=== PATIENT | male | born 1960 | race Caucasian/White ===

== ENCOUNTER 2023-05-12 16:36 | Inpatient (IN) ==
[2023-05-12] MEDS ORDERED: SODIUM CHLORIDE 0.9% 500 ML IV STA (16:46)
[2023-05-12] MEDS ORDERED: ONDANSETRON INJ 2 MG/ML 2 ML VIAL IV STA (16:57)
[2023-05-12] MEDS ORDERED: MoRPHine SULFATE 4 MG/ML 1 ML CARP\\VIAL IV STA ×2 (16:57→20:02)
--- NOTE | 2023-05-12 16:59 | Emergency Department Note ---
Impression & Plan Atypical chest pain ADMIT ED Provider Note HPI: The patient is a 62-year-old gentleman with history of Waldenstrom macroglobulinemia, who presents the emergency department today with complaint of chills and a presyncopal type sensation. Patient states that this began several hours prior to arrival to the ED. Patient states that he felt "very cold" when he was sitting in his truck. 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 Patient states that he began to feel continuingly unwell, symptoms are very nonspecific but he does mention that he believes he had some chest discomfort at the time as well. Patient states he continued to have chills and felt somewhat lightheaded and therefore came to the ED to be assessed. On arrival here to the ED the patient is moderately tachycardic, blood pressure is borderline in the 90s systolic. Patient denies any current chest pain or shortness of breath but states he feels off his baseline. Patient states that time he is getting pain in his upper back and to the left side of his chest. Patient is afebrile on arrival. ROS: - Per HPI Differential Diagnosis: COVID-19 infection, influenza A infection, viral upper respiratory infection, sepsis, pneumonia, urinary tract infection, acute coronary syndrome, pulmonary embolism, critical electrolyte abnormalities, amongst other potential pathologies. *Outpatient medications and allergy history reviewed. *Pertinent external medical records reviewed. PE: General: Alert HEENT: Normocephalic, trachea midline Eyes: Extraocular eye movement is intact, no scleral erythema Pulmonary: Clear to auscultation bilaterally, no wheezing Cardio: Tachycardic rate with regular rhythm GI: Abdomen is soft to palpation : No suprapubic tenderness MSK: No evidence of trauma or malformation of the extremities, no edema Skin: No evidence of rash Neuro: Alert, no focal deficits Psychiatric: Cooperative technology solutions architect: (As interpreted by myself): - An order was placed for continuous cardiac monitoring - Patient was noted to be in sinus tachycardia with a rate of 117 EKG: (As interpreted by myself): Rate: 114 Rhythm: Sinus tachycardia Intervals: Within normal limits ST changes: No ST elevation Time: 1643 EKG #2: (As interpreted by myself): Rate: 114 Rhythm: Sinus tachycardia Intervals: Within normal limits ST changes: No ST elevation Time: 1920 Interventions provided in ED: -IV fluid bolus, IV vancomycin, IV cefepime, IV morphine Medical Decision Making: Shortly after the patient arrived IV was established lab work ordered, patient was maintained on wireless construction manager, patient was given IV fluid bolus for tachycardia and mild hypotension. Lab work shows a leukocytosis of 14.2, hemoglobin is slightly reduced at 12.3, platelet count is normal at 243, D-dimer was obtained and is markedly elevated at 9660, CMP shows mild hyponatremia but otherwise no critical findings, procalcitonin is nonspecific at 0.38, troponin is negative x1. EKG shows evidence of sinus tachycardia without any acute ischemic changes. Given D-dimer elevation, CT angiography of the chest was obtained that does not show any evidence of pulmonary embolism. On my reassessment following IV fluids patient states that he has some left-sided chest discomfort now. Repeat EKG was obtained and again does not show any acute ischemic changes. Delta troponin was also obtained and remains negative. Patient continues to state that he has myalgias and generally does not feel well, his blood pressure is improved to greater than 100 systolic on my reassessment. Blood cultures were drawn here in the ED, his urinalysis does not show any evidence of infection, Lyme testing is negative, chest x-ray does not show any pneumonia. Given the patient's history of Waldenstrom macroglobulinemia with ongoing symptoms concerning for sepsis in addition to ongoing tachycardia in the low 100s, I do have concern for sepsis of unknown origin at this point. His lactic acid is noted to be within normal limits. Patient was started on broad-spectrum vancomycin and cefepime, I d iscussed the patient's presentation with the on-call hospitalist for [facility], Dr. Blanco, and the patient was excepted for admission in stable condition for further care. Consultants: Hospitalist, Dr. Blanco Disposition discussion held by myself with: Patient and at bedside * CRITICAL CARE TIME: ( 45 ) minutes -Stabilization of hypotension and tachycardia requiring greater than 30 cc/kg of IV fluid resuscitation for stabilization of blood pressure and improvement in t achycardia, time spent at the bedside, interpretation of diagnostic studies including EKG, discussion with other physicians and arrangement of admission Diagnosis: 1. Sepsis of unknown origin 2. Hypotension, fluid responsive 3. Leukocytosis, acute 4. Chest pain, acute, nonspecific 5. Elevated D-dimer Disposition: Admission Saul Pearson DO Emergency Medicine Past Med/Surg History Social History Smoking Status: Never smoker Feels Safe at Home: Yes Home Meds Home Medications Medication Instructions Recorded Confirmed clotrimazole-betamethasone 1 1 applic topical BID PRN other 05/12/23 05/12/23 %-0.05 % topical cream hydrocortisone 2.5 % topical cream 1 applic topical BID PRN flare up 05/12/23 05/12/23 ibuprofen 800 mg tablet (IBU) 800 mg PO Q8H PRN Pain 05/12/23 05/12/23 ketoconazole 2 % topical cream See Rx Instructions .Route .COMPLEX 05/12/23 05/12/23 metformin 500 mg tablet 500 mg PO BID 05/12/23 05/12/23 rosuvastatin 5 mg tablet 5 mg PO DAILY 05/12/23 05/12/23 tizanidine 4 mg tablet 4 mg PO Q6H PRN Muscle Spasm 05/12/23 05/12/23 trazodone 50 mg tablet 50 mg PO HS 05/12/23 05/12/23 valacyclovir 1 gram tablet See Rx Instructions .Route 05/12/23 05/12/23 (Valtrex) .COMPLEX PRN Cold Sores zolpidem 12.5 mg tablet,extended 12.5 mg PO HS PRN Sleep 05/12/23 05/12/23 release,multiphase (Ambien CR) Results & Data (ED) Vital Signs Vital Signs - 24 hr 05/12/23 16:46 05/12/23 16:28 05/12/23 16:28 Temperature 36.5 C Temperature Source Oral Pulse Rate 117 H 116 H Pulse Rate [Right Finger] Pulse Rate from SpO2 Sensor Pulse Rhythm [Right Finger] Pulse Strength [Right Finger] Respiratory Rate 19 Respiratory Effort / Characteristics Non-Labored Spontaneous Respiratory Depth Normal Respiratory Pattern Regular Blood Pressure 96/79 L Blood Pressure [Right Arm] Blood Pressure Mean 84 Blood Pressure Mean [Right Arm] Blood Pressure Position [Right Arm] Pulse Oximetry 96 96 Oxygen Delivery Method Room Air Room Air Oxygen Flow Rate 0 Sepsis Recent Fever Within 48 Hours No Sepsis New/Unexplained Change in Mental Status N/A Sepsis Action Taken by Nursing Physician Notified 05/12/23 16:47 05/12/23 18:00 05/12/23 16:44 Temperature Temperature Source Pulse Rate Pulse Rate [Right Finger] 110 H Pulse Rate from SpO2 Sensor Pulse Rhythm [Right Finger] Regular Pulse Strength [Right Finger] Normal Respiratory Rate 18 Respiratory Effort / Characteristics Non-Labored Respiratory Depth Normal Respiratory Pattern Regular Blood Pressure 96/79 L Blood Pressure [Right Arm] 104/73 Blood Pressure Mean 89 Blood Pressure Mean [Right Arm] 83 Blood Pressure Position [Right Arm] Lying Pulse Oximetry 96 97 Oxygen Delivery Method Room Air Room Air Oxygen Flow Rate Sepsis Recent Fever Within 48 Hours Sepsis New/Unexplained Change in Mental Status Sepsis Action Taken by Nursing 05/12/23 16:44 05/12/23 16:50 05/12/23 16:53 Temperature Temperature Source Pulse Rate 117 H 119 H 118 H Pulse Rate [Right Finger] Pulse Rate from SpO2 Sensor 112 H 118 H 118 H Pulse Rhythm [Right Finger] Pulse Strength [Right Finger] Respiratory Rate 24 26 H 27 H Respiratory Effort / Characteristics Respiratory Depth Respiratory Pattern Blood Pressure Blood Pressure [Right Arm] Blood Pressure Mean Blood Pressure Mean [Right Arm] Blood Pressure Position [Right Arm] Pulse Oximetry 97 97 96 Oxygen Delivery Method Oxygen Flow Rate Sepsis Recent Fever Within 48 Hours Sepsis New/Unexplained Change in Mental Status Sepsis Action Taken by Nursing 05/12/23 16:53 05/12/23 17:00 05/12/23 17:00 Temperature Temperature Source Pulse Rate 115 H Pulse Rate [Right Finger] Pulse Rate from SpO2 Sensor 115 H Pulse Rhythm [Right Finger] Pulse Strength [Right Finger] Respiratory Rate 24 Respiratory Effort / Characteristics Respiratory Depth Respiratory Pattern Blood Pressure 109/76 134/84 Blood Pressure [Right Arm] Blood Pressure Mean 85 103 Blood Pressure Mean [Right Arm] Blood Pressure Position [Right Arm] Pulse Oximetry 96 Oxygen Delivery Method Oxygen Flow Rate Sepsis Recent Fever Within 48 Hours Sepsis New/Unexplained Change in Mental Status Sepsis Action Taken by Nursing 05/12/23 17:10 05/12/23 17:41 05/12/23 17:41 Temperature Temperature Source Pulse Rate 117 H 117 H Pulse Rate [Right Finger] Pulse Rate from SpO2 Sensor 117 H 116 H Pulse Rhythm [Right Finger] Pulse Strength [Right Finger] Respiratory Rate 28 H 19 Respiratory Effort / Characteristics Respiratory Depth Respiratory Pattern Blood Pressure 112/80 Blood Pressure [Right Arm] Blood Pressure Mean 90 Blood Pressure Mean [Right Arm] Blood Pressure Position [Right Arm] Pulse Oximetry 95 95 Oxygen Delivery Method Oxygen Flow Rate Sepsis Recent Fever Within 48 Hours Sepsis New/Unexplained Change in Mental Status Sepsis Action Taken by Nursing 05/12/23 17:50 05/12/23 18:00 05/12/23 18:00 Temperature Temperature Source Pulse Rate 112 H 112 H Pulse Rate [Right Finger] Pulse Rate from SpO2 Sensor 111 H 111 H Pulse Rhythm [Right Finger] Pulse Strength [Right Finger] Respiratory Rate 22 19 Respiratory Effort / Characteristics Respiratory Depth Respiratory Pattern Blood Pressure 97/70 L Blood Pressure [Right Arm] Blood Pressure Mean 81 Blood Pressure Mean [Right Arm] Blood Pressure Position [Right Arm] Pulse Oximetry 95 94 Oxygen Delivery Method Oxygen Flow Rate Sepsis Recent Fever Within 48 Hours Sepsis New/Unexplained Change in Mental Status Sepsis Action Taken by Nursing 05/12/23 18:10 05/12/23 18:12 05/12/23 18:12 Temperature Temperature Source Pulse Rate 110 H 111 H Pulse Rate [Right Finger] Pulse Rate from SpO2 Sensor 110 H 111 H Pulse Rhythm [Right Finger] Pulse Strength [Right Finger] Respiratory Rate 13 30 H Respiratory Effort / Characteristics Respiratory Depth Respiratory Pattern Blood Pressure 116/65 Blood Pressure [Right Arm] Blood Pressure Mean 69 Blood Pressure Mean [Right Arm] Blood Pressure Position [Right Arm] Pulse Oximetry 95 96 Oxygen Delivery Method Oxygen Flow Rate Sepsis Recent Fever Within 48 Hours Sepsis New/Unexplained Change in Mental Status Sepsis Action Taken by Nursing 05/12/23 18:27 05/12/23 18:27 05/12/23 18:30 Temperature Temperature Source Pulse Rate 110 H Pulse Rate [Right Finger] Pulse Rate from SpO2 Sensor Pulse Rhythm [Right Finger] Pulse Strength [Right Finger] Respiratory Rate 12 Respiratory Effort / Characteristics Respiratory Depth Respiratory Pattern Blood Pressure 104/73 98/71 L Blood Pressure [Right Arm] Blood Pressure Mean 83 83 Blood Pressure Mean [Right Arm] Blood Pressure Position [Right Arm] Pulse Oximetry Oxygen Delivery Method Oxygen Flow Rate Sepsis Recent Fever Within 48 Hours Sepsis New/Unexplained Change in Mental Status Sepsis Action Taken by Nursing 05/12/23 18:30 05/12/23 18:40 05/12/23 20:00 Temperature Temperature Source Pulse Rate 111 H 111 H Pulse Rate [Right Finger] 109 H Pulse Rate from SpO2 Sensor 111 H 111 H Pulse Rhythm [Right Finger] Regular Pulse Strength [Right Finger] Normal Respiratory Rate 21 20 18 Respiratory Effort / Characteristics Non-Labored Spontaneous Respiratory Depth Normal Respiratory Pattern Regular Blood Pressure Blood Pressure [Right Arm] 123/85 Blood Pressure Mean Blood Pressure Mean [Right Arm] 97 Blood Pressure Position [Right Arm] Semi-fowlers Pulse Oximetry 96 97 95 Oxygen Delivery Method Room Air Room Air Oxygen Flow Rate Sepsis Recent Fever Within 48 Hours Sepsis New/Unexplained Change in Mental Status Sepsis Action Taken by Nursing Laboratory Data 05/12/23 16:59 05/12/23 16:59 Lab Results 05/12/23 05/12/23 05/12/23 Range/Units 16:59 16:59 16:59 WBC 14.22 H (4.8-10.8) K/ul RBC 4.04 L (4.70-6.10) M/uL Hgb 12.3 L (14.0-18.0) g/dl Hct 36.6 L (42.0-52.0) % MCV 90.6 (80.0-100.0) fL MCH 30.4 (25.0-34.0) pg MCHC 33.6 (32.0-36.0) g/dL RDW Std Deviation 44.4 (36.4-46.3) fL RDW Coeff of Dg 13.5 (11.5-14.5) % Plt Count 243 (130-400) K/uL MPV 9.3 L (9.4-12.4) fL Immature Gran % (Auto) 0.3 % Neut % (Auto) 92.9 % Lymph % (Auto) 4.4 % [place] % (Auto) 1.6 % Eos % (Auto) 0.7 % Baso % (Auto) 0.1 % Neut # (Auto) 13.21 H (1.40-6.50) K/uL Lymph # (Auto) 0.62 L (1.2-3.4) K/uL [place] # (Auto) 0.23 (0.11-0.59) K/uL Eos # (Auto) 0.10 (0-0.50) K/uL Baso # (Auto) 0.02 (0-0.2) K/uL Immature Gran # (Auto) 0.04 (0.01-0.20) K/uL PT 10.8 (9.0-12.0) Seconds INR 1.0 (0.9-1.1) D-Dimer 9660 H* (0-500) ug/L FEU Sodium 135 L (136-145) mmol/L Potassium 4.0 (3.5-5.1) mmol/L Chloride 103 (98-107) mmol/L Carbon Dioxide 22 (21-32) mmol/L Anion Gap 10 (3-11) BUN 15 (6-23) mg/dl Creatinine 0.96 (0.6-1.4) mg/dl Est Cr Clr Drug Dosing 86.3 ml/min Est GFR ( Amer) 99.2 ml/min Est GFR (Non-Af Amer) 85.6 ml/min BUN/Creatinine Ratio 15.6 (10-20) Glucose 128 H (70-99(Fasting)) mg/dl Lactate (0.4-2.0) mmol/L Calcium 9.4 (8.6-10.3) mg/dl Total Bilirubin 0.7 (0.2-1.0) mg/dl AST 14 (13-39) U/L ALT 11 (7-52) U/L Alkaline Phosphatase 42 (34-104) U/L Troponin I High Sens 6.6 (0-20) pg/ml Total Protein 8.9 H (6.0-8.3) gm/dl Albumin 3.7 (3.4-5.0) gm/dl Globulin 5.2 H (2.5-4.0) gm/dl Albumin/Globulin Ratio 0.7 L (0.9-2) Lipase 26 (11-82) U/L Procalcitonin (0-0.5) ng/ml Urine Color Urine Appearance (Clear) Urine pH (4.5-7.5) Ur Specific [place] (1.000-1.030) Urine Protein (Negative) Urine Glucose (UA) (Negative) Urine Ketones (Negative) Urine Blood (Negative) Urine Nitrite (Negative) Urine Bilirubin (Negative) Urine Urobilinogen (Negative) Ur Leukocyte Esterase (Negative) Adenovirus (PCR) (NotDetected) B. pertussis DNA (PCR) (NotDetected) B.parapertussis DNA PCR (NotDetected) Lyme Disease IgG Ab (Negative) Lyme Disease IgM Ab (Negative) C. pneumoniae DNA (PCR) (NotDetected) Coronavirus OC43 (PCR) (NotDetected) Coronavirus HKU1 (PCR) (NotDetected) Coronavirus 229E (PCR) (NotDetected) SARS-CoV-2 (PCR) (NotDetected) Coronavirus NL63 (PCR) (NotDetected) Human Metapneumovir PCR (NotDetected) Influenza Type A (PCR) (NotDetected) Influenza Type B (PCR) (NotDetected) M. pneumoniae (PCR) (NotDetected) Parainfluenza 1 (PCR) (NotDetected) Parainfluenza 2 (PCR) (NotDetected) Parainfluenza 3 (PCR) (NotDetected) Parainfluenza 4 (PCR) (NotDetected) RSV (PCR) (NotDetected) Entero/Rhino (PCR) (NotDetected) 05/12/23 05/12/23 05/12/23 Range/Units 16:59 16:59 16:59 WBC (4.8-10.8) K/ul RBC (4.70-6.10) M/uL Hgb (14.0-18.0) g/dl Hct (42.0-52.0) % MCV (80.0-100.0) fL MCH (25.0-34.0) pg MCHC (32.0-36.0) g/dL RDW Std Deviation (36.4-46.3) fL RDW Coeff of Dg (11.5-14.5) % Plt Count (130-400) K/uL MPV (9.4-12.4) fL Immature Gran % (Auto) % Neut % (Auto) % Lymph % (Auto) % [place] % (Auto) % Eos % (Auto) % Baso % (Auto) % Neut # (Auto) (1.40-6.50) K/uL Lymph # (Auto) (1.2-3.4) K/uL [place] # (Auto) (0.11-0.59) K/uL Eos # (Auto) (0-0.50) K/uL Baso # (Auto) (0-0.2) K/uL Immature Gran # (Auto) (0.01-0.20) K/uL PT (9.0-12.0) Seconds INR (0.9-1.1) D-Dimer (0-500) ug/L FEU Sodium (136-145) mmol/L Potassium (3.5-5.1) mmol/L Chloride (98-107) mmol/L Carbon Dioxide (21-32) mmol/L Anion Gap (3-11) BUN (6-23) mg/dl Creatinine (0.6-1.4) mg/dl Est Cr Clr Drug Dosing ml/min Est GFR ( Amer) ml/min Est GFR (Non-Af Amer) ml/min BUN/Creatinine Ratio (10-20) Glucose (70-99(Fasting)) mg/dl Lactate (0.4-2.0) mmol/L Calcium (8.6-10.3) mg/dl Total Bilirubin (0.2-1.0) mg/dl AST (13-39) U/L ALT (7-52) U/L Alkaline Phosphatase (34-104) U/L Troponin I High Sens (0-20) pg/ml Total Protein (6.0-8.3) gm/dl Albumin (3.4-5.0) gm/dl Globulin (2.5-4.0) gm/dl Albumin/Globulin Ratio (0.9-2) Lipase (11-82) U/L Procalcitonin 0.38 (0-0.5) ng/ml Urine Color Urine Appearance (Clear) Urine pH (4.5-7.5) Ur Specific [place] (1.000-1.030) Urine Protein (Negative) Urine Glucose (UA) (Negative) Urine Ketones (Negative) Urine Blood (Negative) Urine Nitrite (Negative) Urine Bilirubin (Negative) Urine Urobilinogen (Negative) Ur Leukocyte Esterase (Negative) Adenovirus (PCR) Not Detected (NotDetected) B. pertussis DNA (PCR) Not Detected (NotDetected) B.parapertussis DNA PCR Not Detected (NotDetected) Lyme Disease IgG Ab Negative (Negative) Lyme Disease IgM Ab Negative (Negative) C. pneumoniae DNA (PCR) Not Detected (NotDetected) Coronavirus OC43 (PCR) Not Detected (NotDetected) Coronavirus HKU1 (PCR) Not Detected (NotDetected) Coronavirus 229E (PCR) Not Detected (NotDetected) SARS-CoV-2 (PCR) Not Detected (NotDetected) Coronavirus NL63 (PCR) Not Detected (NotDetected) Human Metapneumovir PCR Not Detected (NotDetected) Influenza Type A (PCR) Not Detected (NotDetected) Influenza Type B (PCR) Not Detected (NotDetected) M. pneumoniae (PCR) Not Detected (NotDetected) Parainfluenza 1 (PCR) Not Detected (NotDetected) Parainfluenza 2 (PCR) Not Detected (NotDetected) Parainfluenza 3 (PCR) Not Detected (NotDetected) Parainfluenza 4 (PCR) Not Detected (NotDetected) RSV (PCR) Not Detected (NotDetected) Entero/Rhino (PCR) Not Detected (NotDetected) 05/12/23 05/12/23 05/12/23 Range/Units 19:03 19:03 Unknown WBC (4.8-10.8) K/ul RBC (4.70-6.10) M/uL Hgb (14.0-18.0) g/dl Hct (42.0-52.0) % MCV (80.0-100.0) fL MCH (25.0-34.0) pg MCHC (32.0-36.0) g/dL RDW Std Deviation (36.4-46.3) fL RDW Coeff of Dg (11.5-14.5) % Plt Count (130-400) K/uL MPV (9.4-12.4) fL Immature Gran % (Auto) % Neut % (Auto) % Lymph % (Auto) % [place] % (Auto) % Eos % (Auto) % Baso % (Auto) % Neut # (Auto) (1.40-6.50) K/uL Lymph # (Auto) (1.2-3.4) K/uL [place] # (Auto) (0.11-0.59) K/uL Eos # (Auto) (0-0.50) K/uL Baso # (Auto) (0-0.2) K/uL Immature Gran # (Auto) (0.01-0.20) K/uL PT (9.0-12.0) Seconds INR (0.9-1.1) D-Dimer (0-500) ug/L FEU Sodium (136-145) mmol/L Potassium (3.5-5.1) mmol/L Chloride (98-107) mmol/L Carbon Dioxide (21-32) mmol/L Anion Gap (3-11) BUN (6-23) mg/dl Creatinine (0.6-1.4) mg/dl Est Cr Clr Drug Dosing ml/min Est GFR ( Amer) ml/min Est GFR (Non-Af Amer) ml/min BUN/Creatinine Ratio (10-20) Glucose (70-99(Fasting)) mg/dl Lactate 1.1 (0.4-2.0) mmol/L Calcium (8.6-10.3) mg/dl Total Bilirubin (0.2-1.0) mg/dl AST (13-39) U/L ALT (7-52) U/L Alkaline Phosphatase (34-104) U/L Troponin I High Sens 4.9 (0-20) pg/ml Total Protein (6.0-8.3) gm/dl Albumin (3.4-5.0) gm/dl Globulin (2.5-4.0) gm/dl Albumin/Globulin Ratio (0.9-2) Lipase (11-82) U/L Procalcitonin (0-0.5) ng/ml Urine Color Yellow Urine Appearance Clear (Clear) Urine pH 5.5 (4.5-7.5) Ur Specific [place] 1.019 (1.000-1.030) Urine Protein Negative (Negative) Urine Glucose (UA) Negative (Negative) Urine Ketones Negative (Negative) Urine Blood Negative (Negative) Urine Nitrite Negative (Negative) Urine Bilirubin Negative (Negative) Urine Urobilinogen Negative (Negative) Ur Leukocyte Esterase Negative (Negative) Adenovirus (PCR) (NotDetected) B. pertussis DNA (PCR) (NotDetected) B.parapertussis DNA PCR (NotDetected) Lyme Disease IgG Ab (Negative) Lyme Disease IgM Ab (Negative) C. pneumoniae DNA (PCR) (NotDetected) Coronavirus OC43 (PCR) (NotDetected) Coronavirus HKU1 (PCR) (NotDetected) Coronavirus 229E (PCR) (NotDetected) SARS-CoV-2 (PCR) (NotDetected) Coronavirus NL63 (PCR) (NotDetected) Human Metapneumovir PCR (NotDetected) Influenza Type A (PCR) (NotDetected) Influenza Type B (PCR) (NotDetected) M. pneumoniae (PCR) (NotDetected) Parainfluenza 1 (PCR) (NotDetected) Parainfluenza 2 (PCR) (NotDetected) Parainfluenza 3 (PCR) (NotDetected) Parainfluenza 4 (PCR) (NotDetected) RSV (PCR) (NotDetected) Entero/Rhino (PCR) (NotDetected) Administered Medications Discontinued Medications Sodium Chloride (Nss) 500 mls @ 999 mls/hr IV .Q31M STA Stop: 05/12/23 17:16 Last Infusion: 05/12/23 17:44 Dose: 0 mls/hr Documented By: Admin: 05/12/23 17:10 Dose: 999 mls/hr Documented By: CHARMAINE Sodium Chloride (Nss 1000ml) 1,000 mls @ 999 mls/hr IV .Q1H1M ONE Stop: 05/12/23 18:13 Last Infusion: 05/12/23 18:49 Dose: 0 mls/hr Documented By: Admin: 05/12/23 17:44 Dose: 999 mls/hr Documented By: CHARMAINE Sodium Chloride (Nss 1000ml) 1,000 mls @ 999 mls/hr IV .Q1H1M ONE Stop: 05/12/23 19:58 Last Admin: 05/12/23 19:27 Dose: 999 mls/hr Documented By: DANYELL Cefepime HCl (Maxipime) 2,000 mg in 20 mls @ 5 mls/min IV NOW STA; Protocol Stop: 05/12/23 20:12 Last Admin: 05/12/23 20:16 Dose: 5 mls/min Documented By: MYKE Ioversol (Ioversol 350 Mg 125ml Prefilled Syringe) 117 ml IV ONCE ONE Stop: 05/12/23 18:23 Last Admin: 05/12/23 18:22 Dose: 117 ml Documented By: GARCIA Morphine Sulfate (Morphine Sulfate 4 Mg/Ml 1 Ml Carp\\Vial) 4 mg IV NOW STA Stop: 05/12/23 16:58 Last Admin: 05/12/23 17:11 Dose: 4 mg Documented By: CHARMAINE Morphine Sulfate (Morphine Sulfate 4 Mg/Ml 1 Ml Carp\\Vial) 4 mg IV NOW STA Stop: 05/12/23 20:03 Last Admin: 05/12/23 20:10 Dose: 4 mg Documented By: MYKE Ondansetron HCl (Ondansetron Inj 2 Mg/Ml 2 Ml Vial) 4 mg IV NOW STA Stop: 05/12/23 16:58 Last Admin: 05/12/23 17:11 Dose: 4 mg Documented By: CHARMAINE Imaging Data Radiologist's Impression: Chest X-Ray 05/12/23 16:47 XR chest 1V not portable HISTORY: Chest pain, nonspecific COMPARISON: None. FINDINGS: No pneumothorax. No pleural effusions. The cardiac silhouette is normal in size. No focal lung consolidations to suggest pneumonia. No evidence for pulmonary edema. Degenerative changes within the shoulders. IMPRESSION: No acute process. ACT 112: Negative or not required by law. Electronically signed by: Jerod Carver M.D. 05/12/2023 5:44 PM Hip X-Ray 05/12/23 16:56 XR hip LT min 2V CLINICAL HISTORY: acute on chronic left groin pain COMPARISON STUDY: None. FINDINGS: No acute fracture or dislocation within the left hip. The visualized pelvic bones are intact. Mild cartilage space narrowing within the superior aspect of the left hip consistent with degenerative change. No evidence for a vascular necrosis of the femoral head. Mild vascular calcifications are noted. No radiopaque foreign bodies. IMPRESSION: Mild osteoarthritis within the left hip. No acute fractures. ACT 112: Negative or not required by law. Electronically signed by: Jerod Carver M.D. 05/12/2023 5:42 PM Chest CTA 05/12/23 18:10 CHEST CTA for PULMONARY ARTERIES CT DOSE: 842.39 mGy.cm HISTORY: Shortness of breath. Elevated d-dimer. Chest pain. TECHNIQUE: Multiaxial CT images of the chest were performed following the intravenous administration of contrast to evaluate the pulmonary arteries. 3D/Maximal intensity projection images were also obtained. Sagittal and coronal reformations were also reviewed. A dose lowering technique was utilized adhering to the principles of ALARA. COMPARISON STUDY: None. FINDINGS: There is a normal caliber thoracic aorta with no evidence for dissection. The heart is normal in size. No pleural or pericardial effusions. Mild respiratory motion artifact results in suboptimal evaluation of the lower lobe segmental/subsegmental pulmonary arteries. However, no filling defects within the pulmonary arteries to suggest a pulmonary embolus. Limited views of the upper abdomen demonstrate a normal spleen and adrenal glands. There is a 9 mm hypodense lesion within the central aspect of the liver. This is technically too small to characterize but statistically represents a cyst. Normal esophagus. The thyroid gland enhances normally. There is a small hiatus hernia. No mediastinal or hilar lymphadenopathy. No acute fractures identified. The central airways are patent. No pneumothorax. Mild dependent changes seen at the lung bases. Otherwise, no focal lung consolidations to suggest a pneumonia. No evidence for pulmonary edema. IMPRESSION: No evidence for a pulmonary embolus. ACT 112: Negative or not required by law. Electronically signed by: Jerod Carver M.D. 05/12/2023 6:41 PM Discharge Plan Visit Data Chief Complaint: Cardiac Assessment Stated Complaint: CHEST TIGHTNESS, ANXIOUS ED Provider: Saul Pearson Discharge Problem: Atypical chest pain Forms Stand Alone Forms: [facility] Prescriptions Prescriptions: No Action metformin 500 mg tablet 500 mg PO BID trazodone 50 mg tablet 50 mg PO HS ibuprofen [IBU] 800 mg tablet 800 mg PO Q8H PRN (Reason: Pain) tizanidine 4 mg tablet 4 mg PO Q6H PRN (Reason: Muscle Spasm) valacyclovir [Valtrex] 1 gram tablet See Rx Instructions .ROUTE .COMPLEX PRN (Reason: Cold Sores) Rx Instructions: as directed clotrimazole-betamethasone 1-0.05 % cream 1 applic TOPICAL BID PRN (Reason: other) hydrocortisone 2.5 % cream 1 applic TOPICAL BID PRN (Reason: flare up) ketoconazole 2 % cream See Rx Instructions .ROUTE .COMPLEX Rx Instructions: as directed, daily rosuvastatin 5 mg tablet 5 mg PO DAILY zolpidem [Ambien CR] 12.5 mg tablet,ext release multiphase 12.5 mg PO HS PRN (Reason: Sleep) Referrals Referrals: PCP,NO [Physician] -
[2023-05-12 17:11] LABS: Hematocrit (blood only) 36.6 % (42.0-52.0); Hemoglobin 12.3 g/dl (14.0-18.0); Mean Corpuscular Hemoglobin 30.4 pg (25.0-34.0); Mean Corpuscular Hgb Conc 33.6 g/dL (32.0-36.0); Mean Corpuscular Volume 90.6 fL (80.0-100.0); Mean Platelet Volume 9.3 fL (9.4-12.4); Platelet Count 243 K/uL (130-400); RDW Coefficient of Variation 13.5 % (11.5-14.5); RDW Standard Deviation 44.4 fL (36.4-46.3); Red Blood Count 4.04 M/uL (4.70-6.10); White Blood Count 14.22 K/ul (4.8-10.8)
[2023-05-12] MEDS ORDERED: SODIUM CHLORIDE 0.9% 1000ML 1,000 ML IV ONE ×2 (17:13→18:58)
[2023-05-12 17:33] LABS: Albumin Level 3.7 gm/dl (3.4-5.0); Basophils # (auto) 0.02 K/uL (0-0.2); Basophils % (auto) 0.1 %; Bilirubin,Total 0.7 mg/dl (0.2-1.0); Calcium 9.4 mg/dl (8.6-10.3); Eosinophils % (auto) 0.7 %; Immature Granulocytes # (auto) 0.04 K/uL (0.01-0.20); Immature Granulocytes % (auto) 0.3 %; Lymphocytes # (auto) 0.62 K/uL (1.2-3.4); Lymphocytes % (auto) 4.4 %; Monocytes # (auto) 0.23 K/uL (0.11-0.59); Monocytes % (auto) 1.6 %; Neutrophils # (auto) 13.21 K/uL (1.40-6.50); Neutrophils % (auto) 92.9 %
[2023-05-12 17:40] LABS: Albumin Globulin Ratio 0.7 (0.9-2); BUN Creatinine Ratio 15.6 (10-20); Creatinine Clr Calc Pharmacy 86.3 ml/min; Est GFR (African American) 99.2 ml/min; Est GFR (Non-African American) 85.6 ml/min; Globulin 5.2 gm/dl (2.5-4.0); Total Protein 8.9 gm/dl (6.0-8.3)
[2023-05-12 17:42] LABS: Troponin I High Sensitivity 6.6 pg/ml (0-20)
--- NOTE | 2023-05-12 17:44 | XRay Report ---
XR hip LT min 2V CLINICAL HISTORY: acute on chronic left groin pain COMPARISON STUDY: None. FINDINGS: No acute fracture or dislocation within the left hip. The visualized pelvic bones are intac t. Mild cartilage space narrowing within the superior aspect of the left hip consistent with degenera tive change. No evidence for avascular necrosis of the femoral head. Mild vascular calcifications are noted. No radiopaque foreign bodies. IMPRESSION: Mild osteoarthritis within the left hip. No acute fractures. ACT 112: Negative or not required by law. Electronically signed by: Jerod Carver M.D. 05/12/2023 5:42 PM
--- NOTE | 2023-05-12 17:45 | XRay Report ---
XR chest 1V not portable HISTORY: Chest pain, nonspecific COMPARISON: None. FINDINGS: No pneumothorax. No pleural effusions. The cardiac silhouette is normal in size. No focal l vicky consolidations to suggest pneumonia. No evidence for pulmonary edema. Degenerative changes within the shoulders. IMPRESSION: No acute process. ACT 112: Negative or not required by law. Electronically signed by: Jerod Carver M.D. 05/12/2023 5:44 PM
[2023-05-12 17:58] LABS: Prothrombin Time 10.8 Seconds (9.0-12.0)
[2023-05-12 18:12] LABS: D Dimer 9660 ug/L FEU (0-500)
[2023-05-12 18:18] LABS: Adenovirus PCR Not Detected (NotDetected); Bordetella parapertussis PCR Not Detected (NotDetected); Bordetella pertussis PCR Not Detected (NotDetected); Chlamydia pneumoniae PCR Not Detected (NotDetected); Coronavirus 229E PCR Not Detected (NotDetected); Coronavirus CoV-2 (COVID19)PCR Not Detected (NotDetected); Coronavirus HKU1 PCR Not Detected (NotDetected); Coronavirus NL63 PCR Not Detected (NotDetected); Coronavirus OC43PCR Not Detected (NotDetected); Human Metapneumovirus PCR Not Detected (NotDetected); Influenza A PCR Not Detected (NotDetected); Influenza B PCR Not Detected (NotDetected); Mycoplasma pneumoniae PCR Not Detected (NotDetected); Parainfluenza Virus 1 PCR Not Detected (NotDetected); Parainfluenza Virus 2 PCR Not Detected (NotDetected); Parainfluenza Virus 3 PCR Not Detected (NotDetected); Parainfluenza Virus 4 PCR Not Detected (NotDetected); Respiratory Syncytial VirusPCR Not Detected (NotDetected); Rhinovirus/Enterovirus PCR Not Detected (NotDetected)
[2023-05-12] MEDS ORDERED: IOVERSOL 350 MG 125mL Prefilled Syringe IV ONE (18:22)
--- NOTE | 2023-05-12 18:43 | CT Scan Report ---
CHEST CTA for PULMONARY ARTERIES CT DOSE: 842.39 mGy.cm HISTORY: Shortness of breath. Elevated d-dimer. Chest pain. TECHNIQUE: Multiaxial CT images of the chest were performed following the intravenous administration of contrast to evaluate the pulmonary arteries. 3D/Maximal intensity projection images were also obta ined. Sagittal and coronal reformations were also reviewed. A dose lowering technique was utilized a dhering to the principles of ALARA. COMPARISON STUDY: None. FINDINGS: There is a normal caliber thoracic aorta with no evidence for dissection. The heart is norm al in size. No pleural or pericardial effusions. Mild respiratory motion artifact results in suboptim al evaluation of the lower lobe segmental/subsegmental pulmonary arteries. However, no filling defect s within the pulmonary arteries to suggest a pulmonary embolus. Limited views of the upper abdomen de monstrate a normal spleen and adrenal glands. There is a 9 mm hypodense lesion within the central asp ect of the liver. This is technically too small to characterize but statistically represents a cyst. Normal esophagus. The thyroid gland enhances normally. There is a small hiatus hernia. No mediastinal or hilar lymphadenopathy. No acute fractures identified. The central airways are patent. No pneumoth orax. Mild dependent changes seen at the lung bases. Otherwise, no focal lung consolidations to sugge st a pneumonia. No evidence for pulmonary edema. IMPRESSION: No evidence for a pulmonary embolus. ACT 112: Negative or not required by law. Electronically signed by: Jerod Carver M.D. 05/12/2023 6:41 PM
[2023-05-12 18:52] LABS: Lyme Ab IgG w/WB Rflx Negative (Negative); Lyme Ab IgM w/WB Rflx Negative (Negative)
[2023-05-12 18:56] LABS: Appearance Urine Clear (Clear); Bilirubin Urine Negative (Negative); Blood Urine Negative (Negative); Color Urine Yellow; Glucose Urine UA Negative (Negative); Ketones Urine Negative (Negative); Leukocyte Esterase Urine Negative (Negative); Nitrite Urine Negative (Negative); Protein Urine Negative (Negative); Specific Gravity Urine 1.019 (1.000-1.030); Urobilinogen Urine Negative (Negative); pH Urine 5.5 (4.5-7.5)
[2023-05-12] MEDS ORDERED: VANCOMYCIN HCL 1,750 MG in SODIUM CHLORIDE 0.9% 500 ML IV ONE (20:09)
[2023-05-12] MEDS ORDERED: CEFEPIME 2,000 MG/20 ML VIAL IV STA (20:09)
[2023-05-12] MEDS ORDERED: VANCOMYCIN CONSULT ACTIVE PRN (20:09)
[2023-05-12] MEDS ORDERED: Patient's ALLERGY Info needs ENTERED STA (21:27)
--- NOTE | 2023-05-12 21:51 | History & Physical Report ---
Date of Service May 12, 2023 Assessment & Plan (1) Atypical chest pain: Plan: 62-year-old male with past med significant for [place] macroglobulinemia currently under observation, hyperlipidemia, diabetes, presents with not feeling well. Was having chills, feeling cold, chest pain and shortness of breath and also abdominal pain, groin and scrotal pain.. Patient was tachycardic and hypotensive on presentation improved with the fluids and antibiotics Chest pain Initial work-up with troponin and EKG unremarkable We will do serial cardiac enzymes and echocardiogram N.p.o. for now Cardiology consult in a.m. Abdominal pain scrotal pain Tachycardic and in soft blood pressure on presentation Has leukocytosis Had fluids and cefepime and Vanco in the ER Patient states he recently had a diverticulitis We will follow CT abdomen pelvis and scrotal ultrasound Continue antibiotics with Zosyn and Vanco N.p.o. for now. IV fluids. IV morphine as needed Ct scan showing diverticulitis and cannot exclude underlying neoplasm. . scrotal US showing possible orchitis and testicular lesion. Surgery and urology consulted. Diabetes Hold metformin Insulin sliding scale Follow blood sugars and HbA1c levels Hyperlipidemia On statin DVT prophylaxis SCDs for now Disposition monitoring med/telemetry Full code History of Present Illness Chief Complaint: Illness chest pain and abdominal pain Primary Care Provider: Derrell Cevallos MD 62-year-old male with past med significant for [place] macroglobulinemia currently under observation, hyperlipidemia, diabetes, presents with not feeling well. 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 He has some rectal pain and urge to go to the bathroom but was not able to move his bowels . Also was having a lot of back pain and lower abdominal pain and groin pain and scrotal pain. [place] nauseous. [place] low-grade temperature. [place] lightheaded. Patient states he was recently treated for diverticulitis. Says he fell in October of this year on his left side from his trailer and had multiple imaging studies and follow with orthopedics which showed some injury to his left lower extremity and he has a follow-up appointment with Ortho. No cough. No blurred visions. Currently hemodynamically stable. Past medical history as mentioned above Past surgical history prostate surgery, hernia surgery Social history used to chew tobacco but quit around , alcohol rarely Family history mother had lung cancer. Father had HI. Paternal grandfather HI Allergies Allergy/AdvReac Type Severity Reaction Status Date / Time No Known Allergies Allergy Verified 05/13/23 00:30 Home Medications Medication Instructions Recorded Confirmed Type clotrimazole-betamethasone 1 1 applic topical BID PRN other 05/12/23 05/12/23 History %-0.05 % topical cream hydrocortisone 2.5 % topical cream 1 applic topical BID PRN flare up 05/12/23 05/12/23 History ibuprofen 800 mg tablet (IBU) 800 mg PO Q8H PRN Pain 05/12/23 05/12/23 History ketoconazole 2 % topical cream See Rx Instructions .Route .COMPLEX 05/12/23 05/12/23 History metformin 500 mg tablet 500 mg PO BID 05/12/23 05/12/23 History rosuvastatin 5 mg tablet 5 mg PO DAILY 05/12/23 05/12/23 History tizanidine 4 mg tablet 4 mg PO Q6H PRN Muscle Spasm 05/12/23 05/12/23 History trazodone 50 mg tablet 50 mg PO HS 05/12/23 05/12/23 History valacyclovir 1 gram tablet See Rx Instructions .Route 05/12/23 05/12/23 History (Valtrex) .COMPLEX PRN Cold Sores zolpidem 12.5 mg tablet,extended 12.5 mg PO HS PRN Sleep 05/12/23 05/12/23 History release,multiphase (Ambien CR) Past Med/Surg History Social History Smoking Status: Never smoker Second Hand Exposure: No; Do You Dip or Chew Tobacco: No; Tobacco Cessation Education Requested by Patient: No Hx Alcohol Use: Yes Alcohol type: beer Hx Substance Use: No Preferred Language: Slovenian Communication Ability: Effective Managing Attorney Required: No Beliefs That Will Affect Care: None Current Living Situation: Spouse Other Information That Helps Us Care for You: No Feels Safe at Home: Yes Safety Concerns: Feels Safe At This Time Assistive Devices: Glasses Review of Systems Review of Systems: All systems reviewed & are unremarkable except as noted in Subjective Physical Exam Physical Exam: General- Not in distress Head- atraumatic Eyes- PERRL. ENT- oropharynx clear Neck- supple, no JVD. Lungs- clear to auscultation no wheezing or crackles Heart- regular rate and rhythm; no murmur, no gallop. Abdomen- normal bowel sounds, soft, tenderness in lower abdomen and groins . Tender scrotum. No obvious erythema seen. Extremities- no pretibial edema, no erythema seen. Neuro- alert, oriented x 3; PERRL, no facial palsy; no dysarthria; obeys commands, moves extremities Skin- warm & dry Results & Data Results & Data Vital Signs (Past 12 Hours) Vital Signs Temp Pulse Pulse Resp BP BP Pulse Ox 05/12/23 20:54 114 H 05/12/23 20:00 109 H 18 123/85 95 05/12/23 18:40 111 H 20 97 05/12/23 18:30 111 H 21 96 05/12/23 18:30 98/71 L 05/12/23 18:27 110 H 12 05/12/23 18:27 104/73 05/12/23 18:12 111 H 30 H 96 05/12/23 18:12 116/65 05/12/23 18:10 110 H 13 95 05/12/23 18:00 112 H 19 94 05/12/23 18:00 97/70 L 05/12/23 17:50 112 H 22 95 05/12/23 17:41 117 H 19 95 05/12/23 17:41 112/80 05/12/23 17:10 117 H 28 H 95 05/12/23 17:00 115 H 24 96 05/12/23 17:00 134/84 05/12/23 16:53 109/76 05/12/23 16:53 118 H 27 H 96 05/12/23 16:50 119 H 26 H 97 05/12/23 16:44 117 H 24 97 05/12/23 16:44 96/79 L 05/12/23 18:00 110 H 18 104/73 97 05/12/23 16:47 96 05/12/23 16:28 96 05/12/23 16:28 36.5 C 116 H 19 96/79 L 96 05/12/23 16:46 117 H O2 Del Method O2 Flow Rate 05/12/23 20:54 05/12/23 20:00 Room Air 05/12/23 18:40 Room Air 05/12/23 18:30 05/12/23 18:30 05/12/23 18:27 05/12/23 18:27 05/12/23 18:12 05/12/23 18:12 05/12/23 18:10 05/12/23 18:00 05/12/23 18:00 05/12/23 17:50 05/12/23 17:41 05/12/23 17:41 05/12/23 17:10 05/12/23 17:00 05/12/23 17:00 05/12/23 16:53 05/12/23 16:53 05/12/23 16:50 05/12/23 16:44 05/12/23 16:44 05/12/23 18:00 Room Air 05/12/23 16:47 Room Air 05/12/23 16:28 Room Air 0 05/12/23 16:28 Room Air 05/12/23 16:46 Diagnostic Findings Laboratory Results WBC 14.22 K/ul (4.8-10.8) H 05/12/23 16:59 RBC 4.04 M/uL (4.70-6.10) L 05/12/23 16:59 Hgb 12.3 g/dl (14.0-18.0) L 05/12/23 16:59 Hct 36.6 % (42.0-52.0) L 05/12/23 16:59 MCV 90.6 fL (80.0-100.0) 05/12/23 16:59 MCH 30.4 pg (25.0-34.0) 05/12/23 16:59 MCHC 33.6 g/dL (32.0-36.0) 05/12/23 16:59 RDW Std Deviation 44.4 fL (36.4-46.3) 05/12/23 16:59 RDW Coeff of Dg 13.5 % (11.5-14.5) 05/12/23 16:59 Plt Count 243 K/uL (130-400) 05/12/23 16:59 MPV 9.3 fL (9.4-12.4) L 05/12/23 16:59 Immature Gran % (Auto) 0.3 % 05/12/23 16:59 Neut % (Auto) 92.9 % 05/12/23 16:59 Lymph % (Auto) 4.4 % 05/12/23 16:59 [place] % (Auto) 1.6 % 05/12/23 16:59 Eos % (Auto) 0.7 % 05/12/23 16:59 Baso % (Auto) 0.1 % 05/12/23 16:59 Neut # (Auto) 13.21 K/uL (1.40-6.50) H 05/12/23 16:59 Lymph # (Auto) 0.62 K/uL (1.2-3.4) L 05/12/23 16:59 [place] # (Auto) 0.23 K/uL (0.11-0.59) 05/12/23 16:59 Eos # (Auto) 0.10 K/uL (0-0.50) 05/12/23 16:59 Baso # (Auto) 0.02 K/uL (0-0.2) 05/12/23 16:59 Immature Gran # (Auto) 0.04 K/uL (0.01-0.20) 05/12/23 16:59 PT 10.8 Seconds (9.0-12.0) 05/12/23 16:59 INR 1.0 (0.9-1.1) 05/12/23 16:59 D-Dimer 9660 ug/L FEU (0-500) H* 05/12/23 16:59 Sodium 135 mmol/L (136-145) L 05/12/23 16:59 Potassium 4.0 mmol/L (3.5-5.1) 05/12/23 16:59 Chloride 103 mmol/L (98-107) 05/12/23 16:59 Carbon Dioxide 22 mmol/L (21-32) 05/12/23 16:59 Anion Gap 10 (3-11) 05/12/23 16:59 BUN 15 mg/dl (6-23) 05/12/23 16:59 Creatinine 0.96 mg/dl (0.6-1.4) 05/12/23 16:59 Est Cr Clr Drug Dosing 86.3 ml/min 05/12/23 16:59 Est GFR ( Amer) 99.2 ml/min 05/12/23 16:59 Est GFR (Non-Af Amer) 85.6 ml/min 05/12/23 16:59 BUN/Creatinine Ratio 15.6 (10-20) 05/12/23 16:59 Glucose 128 mg/dl (70-99(Fasting)) H 05/12/23 16:59 Lactate 1.1 mmol/L (0.4-2.0) 05/12/23 19:03 Calcium 9.4 mg/dl (8.6-10.3) 05/12/23 16:59 Total Bilirubin 0.7 mg/dl (0.2-1.0) 05/12/23 16:59 AST 14 U/L (13-39) 05/12/23 16:59 ALT 11 U/L (7-52) 05/12/23 16:59 Alkaline Phosphatase 42 U/L (34-104) 05/12/23 16:59 Troponin I High Sens 4.9 pg/ml (0-20) 05/12/23 19:03 Total Protein 8.9 gm/dl (6.0-8.3) H 05/12/23 16:59 Albumin 3.7 gm/dl (3.4-5.0) 05/12/23 16:59 Globulin 5.2 gm/dl (2.5-4.0) H 05/12/23 16:59 Albumin/Globulin Ratio 0.7 (0.9-2) L 05/12/23 16:59 Lipase 26 U/L (11-82) 05/12/23 16:59 Procalcitonin 0.38 ng/ml (0-0.5) 05/12/23 16:59 Urine Color Yellow 05/12/23 Unknown Urine Appearance Clear (Clear) 05/12/23 Unknown Urine pH 5.5 (4.5-7.5) 05/12/23 Unknown Ur Specific [place] 1.019 (1.000-1.030) 05/12/23 Unknown Urine Protein Negative (Negative) 05/12/23 Unknown Urine Glucose (UA) Negative (Negative) 05/12/23 Unknown Urine Ketones Negative (Negative) 05/12/23 Unknown Urine Blood Negative (Negative) 05/12/23 Unknown Urine Nitrite Negative (Negative) 05/12/23 Unknown Urine Bilirubin Negative (Negative) 05/12/23 Unknown Urine Urobilinogen Negative (Negative) 05/12/23 Unknown Ur Leukocyte Esterase Negative (Negative) 05/12/23 Unknown Adenovirus (PCR) Not Detected (NotDetected) 05/12/23 16:59 B. pertussis DNA (PCR) Not Detected (NotDetected) 05/12/23 16:59 B.parapertussis DNA PCR Not Detected (NotDetected) 05/12/23 16:59 Lyme Disease IgG Ab Negative (Negative) 05/12/23 16:59 Lyme Disease IgM Ab Negative (Negative) 05/12/23 16:59 C. pneumoniae DNA (PCR) Not Detected (NotDetected) 05/12/23 16:59 Coronavirus OC43 (PCR) Not Detected (NotDetected) 05/12/23 16:59 Coronavirus HKU1 (PCR) Not Detected (NotDetected) 05/12/23 16:59 Coronavirus 229E (PCR) Not Detected (NotDetected) 05/12/23 16:59 SARS-CoV-2 (PCR) Not Detected (NotDetected) 05/12/23 16:59 Coronavirus NL63 (PCR) Not Detected (NotDetected) 05/12/23 16:59 Human Metapneumovir PCR Not Detected (NotDetected) 05/12/23 16:59 Influenza Type A (PCR) Not Detected (NotDetected) 05/12/23 16:59 Influenza Type B (PCR) Not Detected (NotDetected) 05/12/23 16:59 M. pneumoniae (PCR) Not Detected (NotDetected) 05/12/23 16:59 Parainfluenza 1 (PCR) Not Detected (NotDetected) 05/12/23 16:59 Parainfluenza 2 (PCR) Not Detected (NotDetected) 05/12/23 16:59 Parainfluenza 3 (PCR) Not Detected (NotDetected) 05/12/23 16:59 Parainfluenza 4 (PCR) Not Detected (NotDetected) 05/12/23 16:59 RSV (PCR) Not Detected (NotDetected) 05/12/23 16:59 Entero/Rhino (PCR) Not Detected (NotDetected) 05/12/23 16:59 Impressions Chest X-Ray 05/12/23 16:47 XR chest 1V not portable HISTORY: Chest pain, nonspecific COMPARISON: None. FINDINGS: No pneumothorax. No pleural effusions. The cardiac silhouette is normal in size. No focal lung consolidations to suggest pneumonia. No evidence for pulmonary edema. Degenerative changes within the shoulders. IMPRESSION: No acute process. ACT 112: Negative or not required by law. Electronically signed by: Jerod Carver M.D. 05/12/2023 5:44 PM Hip X-Ray 05/12/23 16:56 XR hip LT min 2V CLINICAL HISTORY: acute on chronic left groin pain COMPARISON STUDY: None. FINDINGS: No acute fracture or dislocation within the left hip. The visualized pelvic bones are intact. Mild cartilage space narrowing within the superior aspect of the left hip consistent with degenerative change. No evidence for a vascular necrosis of the femoral head. Mild vascular calcifications are noted. No radiopaque foreign bodies. IMPRESSION: Mild osteoarthritis within the left hip. No acute fractures. ACT 112: Negative or not required by law. Electronically signed by: Jerod Carver M.D. 05/12/2023 5:42 PM Chest CTA 05/12/23 18:10 CHEST CTA for PULMONARY ARTERIES CT DOSE: 842.39 mGy.cm HISTORY: Shortness of breath. Elevated d-dimer. Chest pain. TECHNIQUE: Multiaxial CT images of the chest were performed following the intravenous administration of contrast to evaluate the pulmonary arteries. 3D/Maximal intensity projection images were also obtained. Sagittal and coronal reformations were also reviewed. A dose lowering technique was utilized adhering to the principles of ALARA. COMPARISON STUDY: None. FINDINGS: There is a normal caliber thoracic aorta with no evidence for dissection. The heart is normal in size. No pleural or pericardial effusions. Mild respiratory motion artifact results in suboptimal evaluation of the lower lobe segmental/subsegmental pulmonary arteries. However, no filling defects within the pulmonary arteries to suggest a pulmonary embolus. Limited views of the upper abdomen demonstrate a normal spleen and adrenal glands. There is a 9 mm hypodense lesion within the central aspect of the liver. This is technically too small to characterize but statistically represents a cyst. Normal esophagus. The thyroid gland enhances normally. There is a small hiatus hernia. No mediastinal or hilar lymphadenopathy. No acute fractures identified. The central airways are patent. No pneumothorax. Mild dependent changes seen at the lung bases. Otherwise, no focal lung consolidations to suggest a pneumonia. No evidence for pulmonary edema. IMPRESSION: No evidence for a pulmonary embolus. ACT 112: Negative or not required by law. Electronically signed by: Jerod Carver M.D. 05/12/2023 6:41 PM ECG Additional Comments: ECG sinus tachycardia rate of 114. No acute ST seen Code Status & VTE Plan VTE Prophylaxis Plan VTE Prophylaxis will be ordered: Yes
[2023-05-12] MEDS ORDERED: SODIUM CHLORIDE 0.9% 500 ML IV SCH (23:15)
--- NOTE | 2023-05-12 23:34 | Ultrasound Report ---
Exam(s): US SCROTAL EXAM: US Scrotum CLINICAL HISTORY: Pain. TECHNIQUE: Real-time ultrasound of the scrotum with color Doppler and image documentation. COMPARISON: No relevant prior studies available. FINDINGS: Right testicle: The right testicle measures 2.2 x 4.6 x 2.3 cm. There is mild increased Doppler flow. No torsion. Left testicle: Indeterminate 0.2 cm left testicular lesion. The left testicle measures 2.8 x 4.7 x 2.5 cm. There is increased Doppler flow. No torsion. Epididymides: Unremarkable. Scrotum: Small complicated right hydroceles are most consistent with spermatoceles. Within the scrotal wall there is a 0.3 cm fluid collection which appears to have a dermal tail. Small bilateral varicoceles. IMPRESSION: 1. Increased vascularity of both testicles is concerning for orchitis in the appropriate clinical setting. 2. Indeterminate 0.2 cm left testicular lesion. Malignancy needs to be excluded. 3. Small complicated right hydroceles are most consistent with spermatoceles. 4. Within the scrotal wall there is a 0.3 cm fluid collection which appears to have a dermal tail. This could represent an epidermal inclusion cyst. 5. Small bilateral varicoceles. Electronically signed by: Lynn Crane MD 05/12/23 23:33 PM
--- NOTE | 2023-05-12 23:37 | CT Scan Report ---
Exam(s): CT ABDOMEN + PELVIS Without Contrast EXAM: CT Abdomen and Pelvis Without Intravenous Contrast CLINICAL HISTORY: Pain. TECHNIQUE: Axial computed tomography images of the abdomen and pelvis without intravenous contrast. CTDI is 23.95 mGy and DLP is 1300.3 mGy-cm. Automated exposure control was utilized for the study. A dose lowering technique was utilized adhering to the principles of ALARA. COMPARISON: No relevant prior studies available. FINDINGS: Lung bases: Unremarkable. No mass. No consolidation. ABDOMEN: Liver: Unremarkable. Gallbladder and bile ducts: Unremarkable. No calcified stones. No ductal dilation. Pancreas: Unremarkable. No ductal dilation. Spleen: Unremarkable. No splenomegaly. Adrenals: Unremarkable. No mass. Kidneys and ureters: There is persistent contrast in the renal collecting system. No obstructing stones. No hydronephrosis. Stomach and bowel: Sigmoid diverticulitis. No abscess or perforation. No obstruction. PELVIS: Appendix: Normal appendix. Bladder: Unremarkable. No stones. Reproductive: Unremarkable as visualized. ABDOMEN and PELVIS: Intraperitoneal space: Unremarkable. No free air. No significant fluid collection. Bones/joints: There are degenerative changes of the spine. No acute fracture. No dislocation. Soft tissues: Small fat-containing left inguinal hernia. Vasculature: Mild atherosclerosis. No abdominal aortic aneurysm. Lymph nodes: Unremarkable. No enlarged lymph nodes. IMPRESSION: Sigmoid diverticulitis. No abscess or perforation. Cannot exclude underlying neoplasm. Electronically signed by: Lynn Crane MD 05/12/23 23:36 PM
[2023-05-13] MEDS ORDERED: GLUCOSE 40% GEL 15 GM TUBE PO PRN (00:08)
[2023-05-13] MEDS ORDERED: CARBOHYDRATES FOR HYPOGLYCEMIA PO PRN (00:08)
[2023-05-13] MEDS ORDERED: MoRPHine SULFATE 4 MG/ML 1 ML CARP\\VIAL IV PRN (00:08)
[2023-05-13] MEDS ORDERED: ZOLPIDEM TARTRATE 10 MG TAB PO PRN (00:08)
[2023-05-13] MEDS ORDERED: GLUCAGON FOR INJ 1 MG VIAL SQ PRN (00:08)
[2023-05-13] MEDS ORDERED: GLUCOSE 10 TAB/TUBE PO PRN (00:08)
[2023-05-13] MEDS ORDERED: NITROGLYCERIN SL 0.4 MG/TAB TAB SL PRN (00:08)
[2023-05-13] MEDS ORDERED: DEXTROSE 50% 50 ML SYRINGE IV PRN (00:08)
[2023-05-13] MEDS ORDERED: PIPERACILLIN/TAZOBACTAM 4.5 GM in DEXTROSE 5% 100 ML IV ONE (01:00)
[2023-05-13] MEDS: ACETAMINOPHEN 325 MG TAB PO PRN ×2 (01:22→21:10)
[2023-05-13] MEDS: INSULIN ASPART PER UNIT CHARGE SC SCH ×5 (01:23→20:59)
[2023-05-13] MEDS: SODIUM CHLORIDE 0.9% 1000ML 1,000 ML IV SCH ×4 (01:26→22:44)
[2023-05-13] MEDS ORDERED: KETOROLAC 30 MG/ML VIAL IV ONE (01:58)
[2023-05-13] MEDS: PIPERACILLIN/TAZOBACTAM 4.5 GM in DEXTROSE 5% 100 ML IV SCH ×3 (05:30→21:12)
[2023-05-13] MEDS ORDERED: VANCOMYCIN HCL 1,000 MG in SODIUM CHLORIDE 0.9% 250 ML IV SCH (06:00)
[2023-05-13 07:11] LABS: BUN Creatinine Ratio 11.4 (10-20); Calcium 8.2 mg/dl (8.6-10.3); Creatinine Clr Calc Pharmacy 70.9 ml/min; Est GFR (African American) 80.6 ml/min; Est GFR (Non-African American) 69.5 ml/min; Magnesium 1.9 mg/dl (1.7-2.4); Potassium 4.1 mmol/L (3.5-5.1)
[2023-05-13 07:26] LABS: Basophils # (auto) 0.03 K/uL (0-0.2); Basophils % (auto) 0.2 %; Eosinophils # (auto) 0.05 K/uL (0-0.50); Eosinophils % (auto) 0.3 %; Hemoglobin 11.2 g/dl (14.0-18.0); Immature Granulocytes # (auto) 0.09 K/uL (0.01-0.20); Immature Granulocytes % (auto) 0.6 %; Lymphocytes # (auto) 0.92 K/uL (1.2-3.4); Lymphocytes % (auto) 5.9 %; Mean Corpuscular Hemoglobin 30.6 pg (25.0-34.0); Mean Corpuscular Hgb Conc 32.9 g/dL (32.0-36.0); Mean Corpuscular Volume 92.9 fL (80.0-100.0); Monocytes # (auto) 1.16 K/uL (0.11-0.59); Monocytes % (auto) 7.5 %; Neutrophils # (auto) 13.22 K/uL (1.40-6.50); Neutrophils % (auto) 85.5 %; Platelet Count 210 K/uL (130-400); RDW Coefficient of Variation 14.1 % (11.5-14.5); Red Blood Count 3.66 M/uL (4.70-6.10); Troponin I High Sensitivity 13.4 pg/ml (0-20); White Blood Count 15.47 K/ul (4.8-10.8)
[2023-05-13 08:09] LABS: Estimated Average Glucose 154 mg/dl
--- NOTE | 2023-05-13 08:19 | Urology Consultation ---
Date of Consultation May 13, 2023 Assessment & Plan (1) Testicular pain: Plan 62-year-old male with what appears to be chronic testicular pain His exam and ultrasound findings are consistent with orchitis, left primarily. Recommend pain control and supportive underwear. No acute urologic intervention necessary. If he were not to improve, I typically recommend a 2- week course of either Bactrim or Cipro. We discussed options for chronic testicular pain which include oral medication, topical medications, pelvic floor physical therapy, cord blocks and as a last result of cord denervation I offered follow-up with me but as he does not live locally that would not wor k for his schedule. I recommended that he reach out to his primary urologist when he is discharged as they will likely need to repeat a scrotal ultrasound in 1 to 2 months to follow the indeterminate lesion that was noted. I suspect this is not anything concerning but does require attention to follow-up Urology to sign off History of Present Illness Attending Physician: Baylee Boyer MD History of Present Illness 62-year-old male who was admitted to the hospital on 05/12/2023 due to back pain, chills and chest tightness. He also reported scrotal pain. Labs showed a leukocytosis of 14.22, hemoglobin of 12.3, creatinine 0.96 and negative urinalysis. Labs today show a leukocytosis of 15.4, hemoglobin of 11.2, and creatinine of 1.14. He had a CT scan of the abdomen pelvis which I independently reviewed and does not show any obvious abnormalities of the system. Independently reviewed a scrotal ultrasound which shows increased vascularity that could possibly represent bilateral orchitis. There is an indeterminant 0.2 cm left testicular lesion. There is a 0.3 cm fluid collection which appears to have a dermal tail that could represent an epidermal inclusion cyst. They also called small bilateral varicoceles and a small right spermatocele. He reports his testicular pain has been chronic since November of this year. 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 His pain is worse on the left than the right. He currently lives in [place] and has seen 2 separate urologists and reports the only thing he has had done is an ultrasound. He did bring up this ultrasound read of the scrotum on his phone and it showed no abnormalities. He denies any dysuria, hematuria, urgency, frequency or incontinence. Allergies Allergy/AdvReac Type Severity Reaction Status Date / Time No Known Allergies Allergy Verified 05/13/23 00:30 Home Medications Medication Instructions Recorded Confirmed Type clotrimazole-betamethasone 1 1 applic topical BID PRN other 05/12/23 05/12/23 History %-0.05 % topical cream hydrocortisone 2.5 % topical cream 1 applic topical BID PRN flare up 05/12/23 05/12/23 History ibuprofen 800 mg tablet (IBU) 800 mg PO Q8H PRN Pain 05/12/23 05/12/23 History ketoconazole 2 % topical cream See Rx Instructions .Route .COMPLEX 05/12/23 05/12/23 History metformin 500 mg tablet 500 mg PO BID 05/12/23 05/12/23 History rosuvastatin 5 mg tablet 5 mg PO DAILY 05/12/23 05/12/23 History tizanidine 4 mg tablet 4 mg PO Q6H PRN Muscle Spasm 05/12/23 05/12/23 History trazodone 50 mg tablet 50 mg PO HS 05/12/23 05/12/23 History valacyclovir 1 gram tablet See Rx Instructions .Route 05/12/23 05/12/23 History (Valtrex) .COMPLEX PRN Cold Sores zolpidem 12.5 mg tablet,extended 12.5 mg PO HS PRN Sleep 05/12/23 05/12/23 History release,multiphase (Ambien CR) Patient History Social History Smoking Status: Never smoker Second Hand Exposure: No; Do You Dip or Chew Tobacco: No; Tobacco Cessation Education Requested by Patient: No Hx Alcohol Use: Yes Alcohol type: beer Hx Substance Use: No Preferred Language: Bahamian Communication Ability: Effective Stage Hand Required: No Beliefs That Will Affect Care: None Current Living Situation: Spouse Other Information That Helps Us Care for You: No Feels Safe at Home: Yes Safety Concerns: Feels Safe At This Time Assistive Devices: Glasses Review of Systems Review of Systems: 14 point review of systems negative outside of what is listed above in HPI Physical Exam Physical Exam: General: Alert and oriented, no acute distress HEENT: Normocephalic, mucous membranes moist Pulmonary: Nonlabored respirations Abdomen: Nondistended : Circumcised phallus with orthotopic meatus. Testicles descended bi laterally. Left testicle is somewhat firm and tender to palpation consistent with orchitis. I do not appreciate any masses. Right testicle is palpably normal and nontender. No masses. I do not appreciate any obvious hydrocele spermatocele or varicocele. No crepitus. Extremities: Moves all 4 spontaneously Neuro: No gross deficits Skin: Warm, dry, no rashes noted Results & Data Vital Signs (Past 12 Hours) Vital Signs Temp Pulse Pulse Resp BP Pulse Ox O2 Del Method 05/13/23 07:31 36.6 C 54 L 20 100/65 95 Room Air 05/13/23 07:22 69 05/13/23 04:40 36.6 C 73 18 88/49 L 94 Room Air 05/12/23 23:54 99 H 05/13/23 02:48 36.7 C 95 H 18 100/62 93 Room Air 05/13/23 02:56 Room Air 05/13/23 02:56 36.6 C 98 H 18 103/69 95 Room Air 05/13/23 01:54 37.2 C 100 H 18 94/58 L 93 Room Air 05/12/23 23:44 36.6 C 98 H 18 103/69 95 Room Air 05/13/23 01:17 88/56 L 05/12/23 22:55 108 H 22 84/59 L 95 Room Air 05/12/23 20:54 114 H PG Care Time/CCT Total # of Minutes Spent Total Time Spent with Patient: Total time spent is greater than 50% in coordination of care (as documented) at patient's floor/unit and/or counseling patient: Coding Level of Care Code 23250 OFFICE CONSULT LVL Diagnoses Testicular pain N50.819
[2023-05-13] MEDS: ROSUVASTATIN CALCIUM 5 MG TAB PO SCH (10:21)
--- NOTE | 2023-05-13 10:33 | Cardiology Consultation ---
Date of Consultation May 13, 2023 Assessment & Plan (1) Atypical chest pain: (2) Diverticulitis: (3) Orchitis: (4) Sepsis: Plan 62-year-old male admitted with rigors, abdominal, chest, and back discomfort. Patient meets criteria for sepsis. Diagnosed with diverticulitis and orchitis. Currently treated with intravenous antibiotics and bowel rest. Cultures pending. Chest discomfort has resolved. ECG without ischemic changes. High-sensitivity troponins are not significantly elevated. Bedside echocardiogram without regional wall motion abnormality. He follows with a electronic communications technician in [place] (Dr. Morocho). With transient chest discomfort associated with acute systemic illness/sepsis, consider repeat stress testing in outpatient setting. History of Present Illness Reason for Consultation: chest pain Requesting Physician: Dr. Blanco Attending Physician: Baylee Boyer MD History of Present Illness 62-year-old patient present to the emergency department due to rigors and weakness. Reports back, shoulder, and chest discomfort associated with anxiety prior to admission. Currently chest pain-free. Notes back and shoulder discomfort which is intermittent and noted in the past. Diagnosed with acute diverticulitis and orchitis. Currently n.p.o. receiving IV antibiotics. Follows with cardiology on a yearly basis due to family history of coronary disease. Reports stress testing within the past year negative for inducible ischemia at high workload. ECGs on admission without ischemic changes. Preliminary review of bedside echocardiogram demonstrates normal wall motion. Cardiac risk factors include diabetes and dyslipidemia. Allergies Allergy/AdvReac Type Severity Reaction Status Date / Time No Known Allergies Allergy Verified 05/13/23 00:30 Home Medications Medication Instructions Recorded Confirmed Type clotrimazole-betamethasone 1 1 applic topical BID PRN other 05/12/23 05/12/23 H istory %-0.05 % topical cream hydrocortisone 2.5 % topical cream 1 applic topical BID PRN flare up 05/12/23 05/12/23 History ibuprofen 800 mg tablet (IBU) 800 mg PO Q8H PRN Pain 05/12/23 05/12/23 History ketoconazole 2 % topical cream See Rx Instructions .Route .COMPLEX 05/12/23 05/12/23 History metformin 500 mg tablet 500 mg PO BID 05/12/23 05/12/23 History rosuvastatin 5 mg tablet 5 mg PO DAILY 05/12/23 05/12/23 History tizanidine 4 mg tablet 4 mg PO Q6H PRN Muscle Spasm 05/12/23 05/12/23 History trazodone 50 mg tablet 50 mg PO HS 05/12/23 05/12/23 History valacyclovir 1 gram tablet See Rx Instructions .Route 05/12/23 05/12/23 History (Valtrex) .COMPLEX PRN Cold Sores zolpidem 12.5 mg tablet,extended 12.5 mg PO HS PRN Sleep 05/12/23 05/12/23 History release,multiphase (Ambien CR) Patient History Social History Smoking Status: Never smoker Second Hand Exposure: No; Do You Dip or Chew Tobacco: No; Tobacco Cessation Education Requested by Patient: No Hx Alcohol Use: Yes Alcohol type: beer Hx Substance Use: No Preferred Language: [place] Rican Communication Ability: Effective 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 Beliefs That Will Affect Care: None Current Living Situation: Spouse Other Information That Helps Us Care for You: No Feels Safe at Home: Yes Safety Concerns: Feels Safe At This Time Assistive Devices: Glasses Review of Systems Review of Systems: All systems reviewed & are unremarkable except as noted in Subjective Physical Exam Constitutional: well nourished; no acute distress Respiratory: no respiratory distress, no labored breathing and no retractions Cardiovascular: Rate/Rhythm: regular rate and regular rhythm Heart Sounds: normal S1 and normal S2; no murmur Vessels: radial pulses present; no JVD and no carotid bruit Extremities: no edema Gastrointestinal (Abdomen): Inspection/Auscultation: abdomen not distended Percussion/Palpation: + abdomen tender (Left lower quadrant) and abdomen soft Neurologic: CN's II-XI intact bilaterally and moves all extremities Results & Data Vital Signs (Past 12 Hours) Vital Signs Temp Pulse Pulse Resp BP Pulse Ox O2 Del Method 05/13/23 07:31 36.6 C 54 L 20 100/65 95 Room Air 05/13/23 07:22 69 05/13/23 04:40 36.6 C 73 18 88/49 L 94 Room Air 05/12/23 23:54 99 H 05/13/23 02:48 36.7 C 95 H 18 100/62 93 Room Air 05/13/23 02:56 Room Air 05/13/23 02:56 36.6 C 98 H 18 103/69 95 Room Air 05/13/23 01:54 37.2 C 100 H 18 94/58 L 93 Room Air 05/12/23 23:44 36.6 C 98 H 18 103/69 95 Room Air 05/13/23 01:17 88/56 L 05/12/23 22:55 108 H 22 84/59 L 95 Room Air Laboratory Results Cardiac Enzymes 05/12/23 05/12/23 05/13/23 Range/Units 16:59 19:03 05:33 AST 14 (13-39) U/L Troponin I High Sens 6.6 4.9 13.4 D (0-20) pg/ml Coagulation 05/12/23 Range/Units 16:59 PT 10.8 (9.0-12.0) Seconds CBC 05/12/23 05/13/23 Range/Units 16:59 05:33 WBC 14.22 H 15.47 H (4.8-10.8) K/ul RBC 4.04 L 3.66 L (4.70-6.10) M/uL Hgb 12.3 L 11.2 L (14.0-18.0) g/dl Hct 36.6 L 34.0 L (42.0-52.0) % Plt Count 243 210 (130-400) K/uL Neut # (Auto) 13.21 H 13.22 H (1.40-6.50) K/uL Lymph # (Auto) 0.62 L 0.92 L (1.2-3.4) K/uL Graham # (Auto) 0.23 1.16 H (0.11-0.59) K/uL Eos # (Auto) 0.10 0.05 (0-0.50) K/uL Baso # (Auto) 0.02 0.03 (0-0.2) K/uL Comprehensive Metabolic Panel 05/12/23 05/13/23 Range/Units 16:59 05:33 Sodium 135 L 135 L (136-145) mmol/L Potassium 4.0 4.1 (3.5-5.1) mmol/L Chloride 103 106 (98-107) mmol/L Carbon Dioxide 22 22 (21-32) mmol/L BUN 15 13 (6-23) mg/dl Creatinine 0.96 1.14 (0.6-1.4) mg/dl Glucose 128 H 118 H (70-99(Fasting)) mg/dl Calcium 9.4 8.2 L (8.6-10.3) mg/dl AST 14 (13-39) U/L ALT 11 (7-52) U/L Alkaline Phosphatase 42 (34-104) U/L Total Protein 8.9 H (6.0-8.3) gm/dl Albumin 3.7 (3.4-5.0) gm/dl Intake and Output 05/12/23 05/13/23 05/13/23 22:59 06:59 14:59 Intake Total 2500 / 3120 620 / 3120 390 / 390 Output Total 850 / 850 Balance 2500 / 2270 -230 / 2270 390 / 390 Intake: IV 2500 / 3120 620 / 3120 390 / 390 Piperacillin/Tazobactam 4.5 gm 120 / 120 120 / 120 In Dextrose 5% 100 ml @ 30 mls/ hr IV Q8H [facility] Rx#:[id number] Sodium Chloride 0.9% 1000ML 1, 2000 / 2000 000 ml @ 999 mls/hr IV .Q1H1M [facility] Rx#:[id number] Sodium Chloride 0.9% 500 ml @ 500 / 1000 500 / 1000 500 mls/hr IV .Q1H [facility] Rx#: [id number] Vancomycin HCl 1,000 mg In 270 / 270 Sodium Chloride 0.9% 250 ml @ 200 mls/hr IV Q12H [facility] Rx#: [id number] Oral 0 / 0 Output: Urine 850 / 850 Other: Weight 87.2 kg 86.1 kg Weight Measurement Method Built in Bedscale Standing Scale ECG Additional Comments: ECG: Normal sinus rhythm, normal ECG.
--- NOTE | 2023-05-13 11:22 | Pharmacy Report ---
Pharmacy PK ABX Note - Date of Service May 13, 2023 - Assessment and Plan Assessment 62 year old M receiving Vancomycin/Zosyn for treatment of orchitis and diverticulitis. * Day #1 of antimicrobial therapy. * Afebrile. Leukocytosis of 15k. SCr worsened to 1.14 mg/dL today. * Blood cultures pending. * Awaiting input from general surgery. Plan Vancomycin * Loading dose: 1750 mg IV x 1 * Maintenance dose: 1000 mg IV every 12 hours * Regimen is predicted to achieve target AUC/CHAVO of 400-600 mg/L.hr * Random level ordered for: 05/15/23 Zosyn * 4.5 g IV every 8 hours Pharmacy will continue to follow and will adjust dose/frequency as necessary. Thank you. Pharmacy has transitioned to AUC monitoring for vancomycin. AUC/CHAVO is the preferred PK/PD target and is associated with decreased risk of nephrotoxicity compared to traditional trough targets.
[2023-05-13] MEDS: KETOROLAC 30 MG/ML VIAL IV PRN ×2 (12:24→18:28)
--- NOTE | 2023-05-13 14:05 | Hospitalist Progress Note ---
Date of Service May 13, 2023 Assessment & Plan (1) Atypical chest pain: Plan: 62-year-old male with past med significant for [place] macroglobulinemia currently under observation, hyperlipidemia, diabetes, presents with not feeling well. Was having chills, feeling cold, chest pain and shortness of breath and also abdominal pain, groin and scrotal pain.. 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 Remains free of any chest pain Serial troponins and EKG did not support any ACS Sigmoid diverticulitis Abdominal pain Tachycardic and in soft blood pressure on presentation Has leukocytosis Had fluids and cefepime and Vanco in the ER Patient states he recently had a diverticulitis Continue antibiotics with Zosyn and Vanco-received in the emergency room N.p.o. for now. IV fluids. IV morphine as needed Has been getting Zosyn for now and vancomycin discontinued Awaiting surgery evaluation We will likely have GI follow-up as an outpatient for colonoscopy Pain in the scrotum Ultrasound revealed acute orchitis History of orchitis before and was seen by urologist in the past Appreciate urology recommendation and input to continue current antibiotic We will have outpatient urology evaluation following discharge We will continue current antibiotic with intravenous Zosyn Diabetes Hold metformin Insulin sliding scale Follow blood sugars and HbA1c levels Hyperlipidemia On statin DVT prophylaxis SCDs for now Disposition monitoring med/telemetry Full code Admission and Anticipated Discharge Date Admission Date: May 12, 2023 Subjective 05/13/2023 The patient was seen and examined in medical telemetry unit He was admitted with abdominal, chest and scrotal pain Has been feeling a little better since admission Still complains pain in the abdomen and testicles but no chest pain and her palpitation Review of Systems Review of Systems: All systems reviewed and are unremarkable except as noted below Physical Exam Physical Exam: Lying in bed with some discomfort mainly due to abdominal pain. And scrotal pain Constitutional: well developed, well nourished, + ill appearing and + obese Eyes: PERRL, conjunctivae normal, anicteric sclerae ENMT: external ear and nose normal, oropharynx normal Neck: trachea midline, no thyromegaly Respiratory: no respiratory distress Auscultation: lungs clear to auscultation bilaterally Cardiovascular: Rate/Rhythm: regular rate and regular rhythm; not tachycardic Gastrointestinal (Abdomen): Inspection/Auscultation: normal bowel sounds; abdomen not distended Percussion/Palpation: + abdomen tender (Minimally tender left lower quadrant without guarding and no rigidity) and abdomen soft Musculoskeletal: No acute arthritis involving any joint Neurologic: normal touch/pain/proprioception and moves all extremities; no focal motor deficits Psychiatric: A+Ox3, euthymic affect Lymphatic: no cervical or axillary lymphadenopathy Results & Data Results & Data Vital Signs (Past 12 Hours) Vital Signs Temp Pulse Pulse Resp BP Pulse Ox O2 Del Method 05/13/23 11:18 36.8 C 83 16 102/62 97 Room Air 05/13/23 07:31 36.6 C 54 L 20 100/65 95 Room Air 05/13/23 07:22 69 05/13/23 04:40 36.6 C 73 18 88/49 L 94 Room Air 05/13/23 02:48 36.7 C 95 H 18 100/62 93 Room Air 05/13/23 02:56 Room Air 05/13/23 02:56 36.6 C 98 H 18 103/69 95 Room Air Laboratory Results Short CBC 05/12/23 05/13/23 Range/Units 16:59 05:33 WBC 14.22 H 15.47 H (4.8-10.8) K/ul Hgb 12.3 L 11.2 L (14.0-18.0) g/dl Hct 36.6 L 34.0 L (42.0-52.0) % Plt Count 243 210 (130-400) K/uL BMP 05/12/23 05/13/23 16:59 05:33 Sodium 135 L 135 L Potassium 4.0 4.1 Chloride 103 106 Carbon Dioxide 22 22 BUN 15 13 Creatinine 0.96 1.14 Glucose 128 H 118 H Calcium 9.4 8.2 L Liver Function 05/12/23 Range/Units 16:59 Total Bilirubin 0.7 (0.2-1.0) mg/dl AST 14 (13-39) U/L ALT 11 (7-52) U/L Alkaline Phosphatase 42 (34-104) U/L Albumin 3.7 (3.4-5.0) gm/dl Urine 05/12/23 Range/Units Unknown Urine Color Yellow Urine Appearance Clear (Clear) Urine pH 5.5 (4.5-7.5) Ur Specific [place] 1.019 (1.000-1.030) Urine Protein Negative (Negative) Urine Glucose (UA) Negative (Negative) Medications Administered Current Inpatient Medications Acetaminophen (Acetaminophen 325 Mg Tab) 650 mg PO Q4H PRN PRN Reason: Pain or Fever Stop: 06/12/23 00:07 Last Admin: 05/13/23 01:22 Dose: 650 mg Dextrose (Dextrose 50% 50 Ml Syringe) 25 - 50 ml IV UD PRN; Protocol PRN Reason: Hypoglycemia Protocol Stop: 06/12/23 00:07 Glucagon (Glucagon For Inj 1 Mg Vial) 1 mg SQ UD PRN; Protocol PRN Reason: Hypoglycemia Protocol Stop: 06/12/23 00:07 Glucose (Glucose 10 Tab/Tube) 4 - 8 tab PO UD PRN; Protocol PRN Reason: Hypoglycemia Treatment Stop: 06/12/23 00:07 Glucose (Glucose 40% Gel 15 Gm Tube) 15 - 30 gm PO UD PRN; Protocol PRN Reason: Hypoglycemia Protocol Stop: 06/12/23 00:07 Sodium Chloride (Nss 1000ml) 1,000 mls @ 125 mls/hr IV .Q8H SACHA Stop: 06/11/23 21:29 Last Admin: 05/13/23 14:07 Dose: 125 mls/hr Piperacillin Sod/Tazobactam (Sod 4.5 gm/ Dextrose) 120 mls @ 30 mls/hr IV Q8H SACHA; Protocol Stop: 05/23/23 05:59 Last Admin: 05/13/23 14:07 Dose: 30 mls/hr Insulin Aspart (Insulin Aspart Per Unit Charge) 0 units SC Q6H SACHA Stop: 06/12/23 00:00 Last Admin: 05/13/23 13:27 Dose: Not Given Ketorolac Tromethamine (Ketorolac 30 Mg/Ml Vial) 30 mg IV Q6H PRN PRN Reason: Pain Stop: 05/18/23 11:25 Last Admin: 05/13/23 12:24 Dose: 30 mg Miscellaneous (Carbohydrates For Hypoglycemia ) 15 - 30 gm PO UD PRN PRN Reason: Hypoglycemia Protocol Stop: 06/12/23 00:07 Morphine Sulfate (Morphine Sulfate 4 Mg/Ml 1 Ml Carp\Vial) 3 mg IV Q3H PRN PRN Reason: Pain Stop: 05/27/23 00:07 Nitroglycerin (Nitroglycerin Sl 0.4 Mg/Tab Tab) 0.4 mg SL Q5M PRN PRN Reason: Chest Pain Stop: 06/12/23 00:07 Ondansetron HCl (Ondansetron Inj 2 Mg/Ml 2 Ml Vial) 4 mg IV Q6H PRN PRN Reason: Nausea Stop: 06/12/23 00:07 Rosuvastatin Calcium (Rosuvastatin Calcium 5 Mg Tab) 5 mg PO DAILY SACHA Stop: 06/12/23 08:59 Last Admin: 05/13/23 10:21 Dose: 5 mg Trazodone HCl (Trazodone Hcl 50 Mg Tab) 50 mg PO HS SACHA Stop: 06/12/23 20:59 Zolpidem Tartrate (Zolpidem Tartrate 10 Mg Tab) 10 mg PO HS PRN PRN Reason: Sleep Stop: 06/12/23 00:44
[2023-05-13] MEDS ORDERED: Nursing to Pharmacy Communication SCH (14:15)
--- NOTE | 2023-05-13 16:28 | Surgery Consultation ---
Date of Consultation May 13, 2023 Assessment & Plan (1) Diverticulitis: His CT images and results were personally viewed and interpreted by myself He does have some moderate stranding of the sigmoid colon without any extraluminal air He does have a leukocytosis of 15 today We will keep him n.p.o., continue his IV antibiotics and will monitor his abdominal exams I did discuss with him that if he begins showing signs of ischemic bowel or worsening macro perforation he may need exploration and colostomy History of Present Illness Reason for Consultation: Diverticulitis Attending Physician: Baylee Boyer MD History of Present Illness This is a 62-year-old male who presented to the ER yesterday with left lower quadrant and back pain for a few days. He states he has had a history of diverticulitis in the past. He is unsure when the last time was. He states he also had a colonoscopy but is unsure of when the last one was as well. He denies any fevers or chills. He states he feels little better today. No family history of colon cancer. He denies any nausea vomiting constipation or diarrhea. Allergies Allergy/AdvReac Type Severity Reaction Status Date / Time No Known Allergies Allergy Verified 05/13/23 00:30 Home Medications Medication Instructions Recorded Confirmed Type clotrimazole-betamethasone 1 1 applic topical BID PRN other 05/12/23 05/12/23 History %-0.05 % topical cream hydrocortisone 2.5 % topical cream 1 applic topical BID PRN flare up 05/12/23 05/12/23 History ibuprofen 800 mg tablet (IBU) 800 mg PO Q8H PRN Pain 05/12/23 05/12/23 History ketoconazole 2 % topical cream See Rx Instructions .Route .COMPLEX 05/12/23 05/12/23 History metformin 500 mg tablet 500 mg PO BID 05/12/23 05/12/23 History rosuvastatin 5 mg tablet 5 mg PO DAILY 05/12/23 05/12/23 History tizanidine 4 mg tablet 4 mg PO Q6H PRN Muscle Spasm 05/12/23 05/12/23 History trazodone 50 mg tablet 50 mg PO HS 05/12/23 05/12/23 History valacyclovir 1 gram tablet See Rx Instructions .Route 05/12/23 05/12/23 History (Valtrex) .COMPLEX PRN Cold Sores zolpidem 12.5 mg tablet,extended 12.5 mg PO HS PRN Sleep 05/12/23 05/12/23 History release,multiphase (Ambien CR) Patient History Social History Smoking Status: Never smoker Second Hand Exposure: No; Do You Dip or Chew Tobacco: No; Tobacco Cessation Education Requested by Patient: No Hx Alcohol Use: Yes Alcohol type: beer Hx Substance Use: No Preferred Language: Honduran Communication Ability: Effective 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 Beliefs That Will Affect Care: None Current Living Situation: Spouse Other Information That Helps Us Care for You: No Feels Safe at Home: Yes Safety Concerns: Feels Safe At This Time Assistive Devices: Glasses Review of Systems Constitutional: no fever and no chills Eyes: no blind spots and no worsening vision Ear, Nose, Mouth, Throat: no ear pain and no hearing loss Respiratory: no cough and no dyspnea Cardiovascular: no chest pain and no dyspnea on exertion Gastrointestinal: + abdominal pain; no nausea and no vomiting Genitourinary: no dysuria or no difficulty urinating Musculoskeletal: no back pain and no neck pain Integumentary: no skin ulcer, no erythema and no urticaria Neurologic: no gait abnormality, no headache(s) and no confusion Psychiatric: no behavioral changes and no depression Hematologic / Lymphatic: no easy bleeding and no easy bruising Physical Exam Constitutional: WD/WN, vitals as above Eyes: PERRL, conjunctivae normal, anicteric sclerae ENMT: external ear and nose normal, oropharynx normal Neck: trachea midline, no thyromegaly Respiratory: normal respiratory effort, lungs clear to auscultation Cardiovascular: RRR, no murmur, no edema Gastrointestinal (Abdomen): Inspection/Auscultation: abdomen normal to inspection; abdomen not distended Percussion/Palpation: + abdomen tender (Left lower quadrant) and abdomen soft; no guarding, abdomen not rigid and no hernia Musculoskeletal: no cyanosis or clubbing, extremities motor strength 5/5 Skin: no rashes, warm and dry Neurologic: PERRL, EOMI, accommodation nl, no face palsy, no dysarthria Psychiatric: A+Ox3, euthymic affect Results & Data Vital Signs (Past 12 Hours) Vital Signs Temp Pulse Pulse Resp BP Pulse Ox O2 Del Method 05/13/23 15:47 36.6 C 72 18 99/63 L 97 Room Air 05/13/23 11:18 36.8 C 83 16 102/62 97 Room Air 05/13/23 07:31 36.6 C 54 L 20 100/65 95 Room Air 05/13/23 07:22 69 05/13/23 04:40 36.6 C 73 18 88/49 L 94 Room Air PG Care Time/CCT Total # of Minutes Spent Total Time Spent with Patient: Total time spent is greater than 50% in coordination of care (as documented) at patient's floor/unit and/or counseling patient: Coding Level of Care Code 24221 IN/OBS CONSULT LVL 5,80M Diagnoses Diverticulitis K57.92
[2023-05-13] MEDS: ONDANSETRON INJ 2 MG/ML 2 ML VIAL IV PRN (16:37)
[2023-05-13] MEDS: ZOLPIDEM TARTRATE 10 MG TAB PO PRN (21:09)
[2023-05-13] MEDS: traZODone HCL 50 MG TAB PO SCH (21:10)
[2023-05-14] MEDS: PIPERACILLIN/TAZOBACTAM 4.5 GM in DEXTROSE 5% 100 ML IV SCH ×3 (05:30→23:41)
[2023-05-14] MEDS: KETOROLAC 30 MG/ML VIAL IV PRN ×3 (05:30→21:25)
[2023-05-14] MEDS: SODIUM CHLORIDE 0.9% 1000ML 1,000 ML IV SCH ×2 (07:02→16:05)
[2023-05-14 07:42] LABS: Creatinine Clr Calc Pharmacy 85.1 ml/min; Est GFR (African American) 99.2 ml/min; Est GFR (Non-African American) 85.6 ml/min
[2023-05-14] MEDS: ROSUVASTATIN CALCIUM 5 MG TAB PO SCH (08:19)
--- NOTE | 2023-05-14 08:32 | Cardiology Progress Note ---
Date of Service May 14, 2023 Assessment & Plan (1) Atypical chest pain: (2) Diverticulitis: (3) Orchitis: (4) Sepsis: Plan 62-year-old male admitted with rigors, abdominal, chest, and back discomfort. Diagnosed with diverticulitis and orchitis. No fever since admission. White blood cell count remains elevated. Currently treated with intravenous antibiotics and bowel rest. Cultures negative x24 hours. No surgical intervention planned currently. Chest discomfort has resolved. ECG without ischemic changes. Echocardiogram without regional wall motion abnormality. Mildly elevated high-sensitivity troponin due to systemic illness/sepsis. He follows with a conservation engineer in [place] (Dr. Morocho). With transient chest discomfort associated with acute systemic illness/sepsis, consider repeat stress testing in outpatient setting. Admission and Anticipated Discharge Date Admission Date: May 12, 2023 Subjective Patient seen examined the bedside. Complains of abdominal discomfort. No recurrent chest discomfort. High-sensitivity troponin mildly elevated. No ischemic ECG changes. Echocardiogram without regional wall motion abnormality. Review of Systems Review of Systems: All systems reviewed & are unremarkable except as noted in Subjective Physical Exam Constitutional: well nourished; no acute distress Respiratory: no respiratory distress, no labored breathing and no retractions Cardiovascular: Rate/Rhythm: regular rate and regular rhythm Heart Sounds: normal S1 and normal S2; no murmur Vessels: radial pulses present; no JVD and no carotid bruit Extremities: no edema Gastrointestinal (Abdomen): Inspection/Auscultation: abdomen not distended Percussion/Palpation: + abdomen tender (Left lower quadrant) and abdomen soft Neurologic: CN's II-XI intact bilaterally and moves all extremities Results & Data Vital Signs (Past 12 Hours) Vital Signs Temp Pulse Pulse Resp BP Pulse Ox O2 Del Method 05/14/23 07:27 37.1 C 65 18 110/65 94 Room Air 05/14/23 06:59 85 05/14/23 03:15 36.5 C 70 20 123/75 93 Room Air 05/14/23 00:49 70 05/14/23 00:14 36.5 C 72 20 111/73 97 Room Air 05/14/23 00:07 Room Air
[2023-05-14 08:38] LABS: BUN Creatinine Ratio 11.5 (10-20); Calcium 7.9 mg/dl (8.6-10.3); Potassium 3.7 mmol/L (3.5-5.1)
[2023-05-14] MEDS: INSULIN ASPART PER UNIT CHARGE SC SCH ×4 (08:47→21:30)
[2023-05-14 08:58] LABS: Basophils # (auto) 0.01 K/uL (0-0.2); Basophils % (auto) 0.1 %; Eosinophils # (auto) 0.05 K/uL (0-0.50); Eosinophils % (auto) 0.5 %; Hematocrit (blood only) 32.1 % (42.0-52.0); Hemoglobin 10.7 g/dl (14.0-18.0); Immature Granulocytes # (auto) 0.02 K/uL (0.01-0.20); Immature Granulocytes % (auto) 0.2 %; Lymphocytes # (auto) 0.83 K/uL (1.2-3.4); Lymphocytes % (auto) 8.8 %; Mean Corpuscular Hemoglobin 30.2 pg (25.0-34.0); Mean Corpuscular Hgb Conc 33.3 g/dL (32.0-36.0); Mean Corpuscular Volume 90.7 fL (80.0-100.0); Mean Platelet Volume 10.3 fL (9.4-12.4); Monocytes # (auto) 1.09 K/uL (0.11-0.59); Monocytes % (auto) 11.5 %; Neutrophils # (auto) 7.46 K/uL (1.40-6.50); Neutrophils % (auto) 78.9 %; Platelet Count 185 K/uL (130-400); RDW Coefficient of Variation 13.6 % (11.5-14.5); RDW Standard Deviation 45.3 fL (36.4-46.3); Red Blood Count 3.54 M/uL (4.70-6.10); White Blood Count 9.46 K/ul (4.8-10.8)
--- NOTE | 2023-05-14 09:44 | Surgery Progress Note ---
Date of Service May 14, 2023 Assessment & Plan (1) Diverticulitis: Plan: We will give him full liquid diet today His leukocytosis has resolved Keep on IV antibiotics while inpatient Admission and Anticipated Discharge Date Admission Date: May 12, 2023 Subjective Patient seen and examined. His abdominal pain is similar to yesterday to may be slightly improved. Afebrile. No nausea or vomiting. Tolerating clear liquids. Review of Systems Constitutional: no fever and no chills Physical Exam Constitutional: WD/WN, vitals as above Gastrointestinal (Abdomen): Inspection/Auscultation: abdomen normal to inspection; abdomen not distended Percussion/Palpation: + abdomen tender (Mild left lower quadrant) and abdomen soft; no guarding and abdomen not rigid Results & Data Vital Signs (Past 12 Hours) Vital Signs Temp Pulse Pulse Resp BP Pulse Ox O2 Del Method 05/14/23 07:27 37.1 C 65 18 110/65 94 Room Air 05/14/23 06:59 85 05/14/23 03:15 36.5 C 70 20 123/75 93 Room Air 05/14/23 00:49 70 05/14/23 00:14 36.5 C 72 20 111/73 97 Room Air 05/14/23 00:07 Room Air PG Care Time/CCT Total # of Minutes Spent Total Time Spent with Patient: Total time spent is greater than 50% in coordination of care (as documented) at patient's floor/unit and/or counseling patient: Coding Level of Care Code 77334 SUB INP/OBS CARE Diagnoses Diverticulitis K57.92
--- NOTE | 2023-05-14 13:42 | Hospitalist Progress Note ---
Date of Service May 14, 2023 Assessment & Plan (1) Atypical chest pain: Plan: 62-year-old male with past med significant for [place] macroglobulinemia currently under observation, hyperlipidemia, diabetes, presents with not feeling well. Was having chills, feeling cold, chest pain and shortness of breath and also abdominal pain, groin and scrotal pain.. 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 primary maid cleaning cooking in [place] Sigmoid diverticulitis Abdominal pain Tachycardic and in soft blood pressure on presentation Has leukocytosis Had fluids and cefepime and Vanco in the ER Patient states he recently had a diverticulitis Continue antibiotics with Zosyn and Vanco-received in the emergency room N.p.o. for now. IV fluids. IV morphine as needed Has been getting Zosyn for now and vancomycin discontinued Awaiting surgery evaluation We will likely have GI follow-up as an outpatient for colonoscopy Less abdominal pain and has been tolerating full liquid diet Pain in the scrotum Ultrasound revealed acute orchitis History of orchitis before and was seen by urologist in the past Appreciate urology recommendation and input to continue current antibiotic We will have outpatient urology evaluation following discharge We will continue current antibiotic with intravenous Zosyn Examination of the scrotal area did not reveal any tenderness or swelling Advised to have follow-up appointment with his urologist as an outpatient Diabetes Hold metformin Insulin sliding scale Follow blood sugars and HbA1c levels Hyperlipidemia On statin DVT prophylaxis SCDs for now Disposition monitoring med/telemetry Full code Admission and Anticipated Discharge Date Admission Date: May 12, 2023 Subjective 05/13/2023 The patient was seen and examined in medical telemetry unit He was admitted with abdominal, chest and scrotal pain Has been feeling a little better since admission Still complains pain in the abdomen and testicles but no chest pain and her palpitation 05/14/2023 The patient was seen and examined in medical telemetry unit He has been feeling much better today Still has left lower quadrant/groin pain Scrotal pain has diminished Review of Systems Review of Systems: All systems reviewed and are unremarkable except as noted below Gastrointestinal: Minimal left quadrant and left groin pain Physical Exam Physical Exam: Lying in bed with some discomfort mainly due to abdominal pain. And scrotal pain Constitutional: well developed, well nourished, + ill appearing and + obese Eyes: PERRL, conjunctivae normal, anicteric sclerae ENMT: external ear and nose normal, oropharynx normal Neck: trachea midline, no thyromegaly Respiratory: no respiratory distress Auscultation: lungs clear to auscultation bilaterally Cardiovascular: Rate/Rhythm: regular rate and regular rhythm; not tachycardic Gastrointestinal (Abdomen): Inspection/Auscultation: normal bowel sounds; abdomen not distended Percussion/Palpation: + abdomen tender (Minimally tender left lower quadrant without guarding and no rigidity) and abdomen soft Neurologic: normal touch/pain/proprioception and moves all extremities; no focal motor deficits Psychiatric: A+Ox3, euthymic affect Lymphatic: no cervical or axillary lymphadenopathy Results & Data Results & Data Vital Signs (Past 12 Hours) Vital Signs Temp Pulse Pulse Resp BP Pulse Ox O2 Del Method 05/14/23 10:56 36.8 C 66 18 127/76 97 Room Air 05/14/23 07:27 37.1 C 65 18 110/65 94 Room Air 05/14/23 06:59 85 05/14/23 03:15 36.5 C 70 20 123/75 93 Room Air Laboratory Results Short CBC 05/14/23 Range/Units 06:18 WBC 9.46 (4.8-10.8) K/ul Hgb 10.7 L (14.0-18.0) g/dl Hct 32.1 L (42.0-52.0) % Plt Count 185 (130-400) K/uL BMP 05/14/23 06:17 Sodium 137 Potassium 3.7 Chloride 109 H Carbon Dioxide 19 L BUN 11 Creatinine 0.96 Glucose 127 H Calcium 7.9 L Medications Administered Current Inpatient Medications Acetaminophen (Acetaminophen 325 Mg Tab) 650 mg PO Q4H PRN PRN Reason: Pain or Fever Stop: 06/12/23 00:07 Last Admin: 05/13/23 21:10 Dose: 650 mg Dextrose (Dextrose 50% 50 Ml Syringe) 25 - 50 ml IV UD PRN; Protocol PRN Reason: Hypoglycemia Protocol Stop: 06/12/23 00:07 Glucagon (Glucagon For Inj 1 Mg Vial) 1 mg SQ UD PRN; Protocol PRN Reason: Hypoglycemia Protocol Stop: 06/12/23 00:07 Glucose (Glucose 10 Tab/Tube) 4 - 8 tab PO UD PRN; Protocol PRN Reason: Hypoglycemia Treatment Stop: 06/12/23 00:07 Glucose (Glucose 40% Gel 15 Gm Tube) 15 - 30 gm PO UD PRN; Protocol PRN Reason: Hypoglycemia Protocol Stop: 06/12/23 00:07 Sodium Chloride (Nss 1000ml) 1,000 mls @ 125 mls/hr IV .Q8H SACHA Stop: 06/11/23 21:29 Last Admin: 05/14/23 07:02 Dose: 125 mls/hr Piperacillin Sod/Tazobactam (Sod 4.5 gm/ Dextrose) 120 mls @ 30 mls/hr IV Q8H SACHA; Protocol Stop: 05/23/23 05:59 Last Admin: 05/14/23 13:54 Dose: 30 mls/hr Insulin Aspart (Insulin Aspart Per Unit Charge) 0 units SC ACHS [facility] Stop: 06/12/23 00:00 Last Admin: 05/14/23 12:55 Dose: Not Given Ketorolac Tromethamine (Ketorolac 30 Mg/Ml Vial) 30 mg IV Q6H PRN PRN Reason: Pain Stop: 05/18/23 11:25 Last Admin: 05/14/23 13:54 Dose: 30 mg Miscellaneous (Carbohydrates For Hypoglycemia ) 15 - 30 gm PO UD PRN PRN Reason: Hypoglycemia Protocol Stop: 06/12/23 00:07 Morphine Sulfate (Morphine Sulfate 4 Mg/Ml 1 Ml Carp\Vial) 3 mg IV Q3H PRN PRN Reason: Pain Stop: 05/27/23 00:07 Nitroglycerin (Nitroglycerin Sl 0.4 Mg/Tab Tab) 0.4 mg SL Q5M PRN PRN Reason: Chest Pain Stop: 06/12/23 00:07 Ondansetron HCl (Ondansetron Inj 2 Mg/Ml 2 Ml Vial) 4 mg IV Q6H PRN PRN Reason: Nausea Stop: 06/12/23 00:07 Last Admin: 05/13/23 16:37 Dose: 4 mg Rosuvastatin Calcium (Rosuvastatin Calcium 5 Mg Tab) 5 mg PO DAILY SACHA Stop: 06/12/23 08:59 Last Admin: 05/14/23 08:19 Dose: 5 mg Trazodone HCl (Trazodone Hcl 50 Mg Tab) 50 mg PO HS SACHA Stop: 06/12/23 20:59 Last Admin: 05/13/23 21:10 Dose: 50 mg Zolpidem Tartrate (Zolpidem Tartrate 10 Mg Tab) 10 mg PO HS PRN PRN Reason: Sleep Stop: 06/12/23 00:44 Last Admin: 05/13/23 21:09 Dose: 10 mg
[2023-05-14] MEDS: traZODone HCL 50 MG TAB PO SCH (22:13)
[2023-05-14] MEDS: ZOLPIDEM TARTRATE 10 MG TAB PO PRN (22:14)
[2023-05-15] MEDS: SODIUM CHLORIDE 0.9% 1000ML 1,000 ML IV SCH ×3 (00:58→16:39)
[2023-05-15] MEDS ORDERED: VANCOMYCIN LEVEL ONE (05:30)
[2023-05-15] MEDS: PIPERACILLIN/TAZOBACTAM 4.5 GM in DEXTROSE 5% 100 ML IV SCH ×3 (05:45→22:07)
[2023-05-15] MEDS: KETOROLAC 30 MG/ML VIAL IV PRN ×2 (05:57→14:30)
[2023-05-15 07:49] LABS: A calco-baum cmplx NotReported Not Detected (NotDetected); Bact fragilis Not Reported Not Detected (NotDetected); C auris Not Reported Not Detected (NotDetected); Calbicans Not Reported Not Detected (NotDetected); Candida glabrata Not Reported Not Detected (NotDetected); Candida krusei Not Reported Not Detected (NotDetected); Cneoformans/gatti Not Reported Not Detected (NotDetected); Cparapsilosis Not Reported Not Detected (NotDetected); Ctropicalis Not Reported Not Detected (NotDetected); E cloacae compx Not Reported Not Detected (NotDetected); Efaecalis Not Reported Not Detected (NotDetected); Efaecium Not Reported Not Detected (NotDetected); Enterobacterales Not Reported Not Detected (NotDetected); Escherichia coli Not Reported Not Detected (NotDetected); H influenzae Not Reported Not Detected (NotDetected); K aerogenes Not Reported Not Detected (NotDetected); Koxytoca Not Reported Not Detected (NotDetected); Kpneumoniae grp Not Reported Not Detected (NotDetected); Lmonocyt Not Reported Not Detected (NotDetected); N meningitidis Not Reported Not Detected (NotDetected); P aeruginosa Not Reported Not Detected (NotDetected); Proteus spp Not Reported Not Detected (NotDetected); Salmonella spp Not Reported Not Detected (NotDetected); Smarcescens Not Reported Not Detected (NotDetected); Staph lugdunensis Not Reported Not Detected (NotDetected); Staph spp. Not Reported Not Detected (NotDetected); Staphaureus Not Reported Not Detected (NotDetected); Staphepi Not Reported Not Detected (NotDetected); Stenmaltophilia Not Reported Not Detected (NotDetected); Strep agal(GrpB) Not Reported Not Detected (NotDetected); Strep pneum Not Reported Not Detected (NotDetected); Strep pyog (GrpA) Not Reported Not Detected (NotDetected); Strep spp Not Reported Not Detected (NotDetected)
[2023-05-15 07:59] LABS: Basophils # (auto) 0.02 K/uL (0-0.2); Basophils % (auto) 0.2 %; Eosinophils # (auto) 0.09 K/uL (0-0.50); Eosinophils % (auto) 0.9 %; Hematocrit (blood only) 34.3 % (42.0-52.0); Hemoglobin 11.2 g/dl (14.0-18.0); Immature Granulocytes # (auto) 0.04 K/uL (0.01-0.20); Immature Granulocytes % (auto) 0.4 %; Lymphocytes # (auto) 1.23 K/uL (1.2-3.4); Lymphocytes % (auto) 12.9 %; Mean Corpuscular Hemoglobin 29.9 pg (25.0-34.0); Mean Corpuscular Hgb Conc 32.7 g/dL (32.0-36.0); Mean Corpuscular Volume 91.7 fL (80.0-100.0); Monocytes # (auto) 0.88 K/uL (0.11-0.59); Monocytes % (auto) 9.2 %; Neutrophils # (auto) 7.29 K/uL (1.40-6.50); Neutrophils % (auto) 76.4 %; Platelet Count 204 K/uL (130-400); RDW Standard Deviation 46.8 fL (36.4-46.3); Red Blood Count 3.74 M/uL (4.70-6.10); White Blood Count 9.55 K/ul (4.8-10.8)
[2023-05-15] MEDS: ROSUVASTATIN CALCIUM 5 MG TAB PO SCH (08:00)
[2023-05-15 08:21] LABS: BUN Creatinine Ratio 10.3 (10-20); Calcium 8.1 mg/dl (8.6-10.3); Creatinine Clr Calc Pharmacy 85.2 ml/min; Est GFR (African American) 97.9 ml/min; Est GFR (Non-African American) 84.5 ml/min
--- NOTE | 2023-05-15 08:43 | Surgery Progress Note ---
Date of Service May 15, 2023 Assessment & Plan (1) Diverticulitis: Plan: His labs and vitals remained stable, leave him on full liquids today If he has less pain over the next 24 hours can advance to low fiber diet We will continue to follow Admission and Anticipated Discharge Date Admission Date: May 12, 2023 Subjective Patient seen and examined. Still with abdominal pain. Not much improvement from yesterday. Vital signs are stable. Afebrile. Review of Systems Constitutional: no fever and no chills Physical Exam Constitutional: WD/WN, vitals as above Gastrointestinal (Abdomen): Soft, mild distention, tenderness palpation left lower quadrant and suprapubic Results & Data Vital Signs (Past 12 Hours) Vital Signs Temp Pulse Pulse Resp BP Pulse Ox O2 Del Method 05/15/23 07:27 36.7 C 77 18 144/77 H 96 Room Air 05/15/23 06:58 67 05/15/23 04:34 36.7 C 57 L 20 128/65 92 Room Air 05/14/23 22:06 69 05/15/23 00:57 36.6 C 67 20 137/76 92 Room Air PG Care Time/CCT Total # of Minutes Spent Total Time Spent with Patient: Total time spent is greater than 50% in coordination of care (as documented) at patient's floor/unit and/or counseling patient: Coding Level of Care Code 18493 SUB INP/OBS CARE 10/19MIN Diagnoses Diverticulitis K57.92
--- NOTE | 2023-05-15 08:46 | Electrocardiogram Report ---
Test Reason : Blood Pressure : / mmHG Vent. Rate : 114 BPM Atrial Rate : 114 BPM P-R Int : 146 ms QRS Dur : 082 ms QT Int : 298 ms P-R-T Axes : 036 014 015 degrees QTc Int : 410 ms Sinus tachycardia Otherwise normal ECG No previous ECGs available Confirmed by Shree Cole ([id number]) on 05/15/2023 8:46:02 AM Referred By: REFERRED SELF Confirmed By:Shree Cole
--- NOTE | 2023-05-15 08:54 | Electrocardiogram Report ---
Test Reason : Blood Pressure : / mmHG Vent. Rate : 114 BPM Atrial Rate : 114 BPM P-R Int : 144 ms QRS Dur : 084 ms QT Int : 318 ms P-R-T Axes : 045 033 020 degrees QTc Int : 438 ms Sinus tachycardia Otherwise normal ECG When compared with ECG of 12-MAY-2023 16:43, (unconfirmed) No significant change was found Confirmed by Shree Cole ([id number]) on 05/15/2023 8:54:10 AM Referred By: REFERRED SELF Confirmed By:Shree Cole
--- NOTE | 2023-05-15 09:04 | Electrocardiogram Report ---
Test Reason : Blood Pressure : / mmHG Vent. Rate : 070 BPM Atrial Rate : 070 BPM P-R Int : 156 ms QRS Dur : 092 ms QT Int : 392 ms P-R-T Axes : 001 033 018 degrees QTc Int : 423 ms Normal sinus rhythm Normal ECG When compared with ECG of 12-MAY-2023 16:43, (unconfirmed) Vent. rate has decreased BY 44 BPM Confirmed by Shree Cole ([id number]) on 05/15/2023 9:04:25 AM Referred By: REFERRED SELF Confirmed By:Shree Cole
[2023-05-15] MEDS: INSULIN ASPART PER UNIT CHARGE SC SCH ×4 (09:29→21:08)
--- NOTE | 2023-05-15 10:02 | Electrocardiogram Report ---
Test Reason : Blood Pressure : / mmHG Vent. Rate : 085 BPM Atrial Rate : 085 BPM P-R Int : 152 ms QRS Dur : 090 ms QT Int : 344 ms P-R-T Axes : 050 042 022 degrees QTc Int : 409 ms Poor data quality, interpretation may be adversely affected Normal sinus rhythm Normal ECG When compared with ECG of 13-MAY-2023 06:11, (unconfirmed) No significant change was found Confirmed by Shree Cole ([id number]) on 05/15/2023 10:02:05 AM Referred By: REFERRED SELF Confirmed By:Shree Cole
--- NOTE | 2023-05-15 12:42 | Cardiology Progress Note ---
Date of Service May 15, 2023 Assessment & Plan (1) Atypical chest pain: (2) Diverticulitis: (3) Orchitis: (4) Sepsis: Plan 62-year-old male admitted with rigors, abdominal, chest, and back discomfort. Diagnosed with diverticulitis and orchitis. No fever since admission. Isolated anaerobic blood culture with gram-positive cocci in chains. Currently treated with intravenous antibiotics and bowel rest. No surgical intervention planned currently. Chest discomfort has resolved. ECG without ischemic changes. Echocardiogram without regional wall motion abnormality. Mildly elevated high-sensitivity troponin due to systemic illness/sepsis. 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 Morocho). With transient chest discomfort associated with acute systemic illness/sepsis, consider repeat stress testing in outpatient setting. No further inpatient cardiac testing or intervention at this time. Cardiology will sign off. Admission and Anticipated Discharge Date Admission Date: May 12, 2023 Subjective Patient seen and examined at bedside. Abdominal discomfort mildly improved. Denies any recurrent chest discomfort. Telemetry reveals sinus rhythm. Offers no concerns/complaints from a cardiovascular perspective. Review of Systems Review of Systems: All systems reviewed & are unremarkable except as noted in Subjective Physical Exam Constitutional: well nourished; no acute distress Respiratory: no respiratory distress, no labored breathing and no retractions Cardiovascular: Rate/Rhythm: regular rate and regular rhythm Heart Sounds: normal S1 and normal S2; no murmur Vessels: radial pulses present; no JVD and no carotid bruit Extremities: no edema Gastrointestinal (Abdomen): Inspection/Auscultation: abdomen not distended Percussion/Palpation: + abdomen tender (Left lower quadrant) and abdomen soft Neurologic: CN's II-XI intact bilaterally and moves all extremities Results & Data Vital Signs (Past 12 Hours) Vital Signs Temp Pulse Pulse Resp BP Pulse Ox O2 Del Method 05/15/23 11:04 36.9 C 57 L 18 152/85 H 96 Room Air 05/15/23 07:27 36.7 C 77 18 144/77 H 96 Room Air 05/15/23 06:58 67 05/15/23 04:34 36.7 C 57 L 20 128/65 92 Room Air 05/15/23 00:57 36.6 C 67 20 137/76 92 Room Air Laboratory Results CBC 05/15/23 Range/Units 07:29 WBC 9.55 (4.8-10.8) K/ul RBC 3.74 L (4.70-6.10) M/uL Hgb 11.2 L (14.0-18.0) g/dl Hct 34.3 L (42.0-52.0) % Plt Count 204 (130-400) K/uL Neut # (Auto) 7.29 H (1.40-6.50) K/uL Lymph # (Auto) 1.23 (1.2-3.4) K/uL Terry # (Auto) 0.88 H (0.11-0.59) K/uL Eos # (Auto) 0.09 (0-0.50) K/uL Baso # (Auto) 0.02 (0-0.2) K/uL Comprehensive Metabolic Panel 05/15/23 Range/Units 07:29 Sodium 137 (136-145) mmol/L Potassium 4.0 (3.5-5.1) mmol/L Chloride 110 H (98-107) mmol/L Carbon Dioxide 19 L (21-32) mmol/L BUN 10 (6-23) mg/dl Creatinine 0.97 (0.6-1.4) mg/dl Glucose 108 H (70-99(Fasting)) mg/dl Calcium 8.1 L (8.6-10.3) mg/dl Intake and Output 05/14/23 05/15/23 05/15/23 22:59 06:59 14:59 Intake Total 1120 / 3340 1680 / 3340 999.167 / 999.167 Output Total 250 / 551 Balance 1120 / 2789 1430 / 2789 999.167 / 999.167 Intake: IV 1120 / 2360 1120 / 2360 999.167 / 999.167 Piperacillin/Tazobactam 4.5 gm 120 / 360 120 / 360 120 / 120 In Dextrose 5% 100 ml @ 30 mls/ hr IV Q8H SACHA Rx#:[id number] Sodium Chloride 0.9% 1000ML 1, 1000 / 2000 1000 / 2000 879.167 / 879.167 000 ml @ 125 mls/hr IV .Q8H SACHA Rx#:[id number] Oral 560 / 980 Output: Urine 250 / 550 Other: Weight 90.2 kg Weight Measurement Method Built in [facility]
[2023-05-15 16:13] LABS: Cdiff Toxin B Gene (2yr or >) Positive Cdiff Gene (Neg)
[2023-05-15 16:14] LABS: Cdiff Antigen Negative; Cdiff Toxin A+B Negative Cdiff Toxin (Negative)
--- NOTE | 2023-05-15 16:26 | Hospitalist Progress Note ---
Date of Service May 15, 2023 Assessment & Plan (1) Atypical chest pain: Plan: 62-year-old male with past med significant for [place] macroglobulinemia currently under observation, hyperlipidemia, diabetes, presents with not feeling well. Was having chills, feeling cold, chest pain and shortness of breath and also abdominal pain, groin and scrotal pain.. 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 primary production maintenance mechanic in [place] No acute cardiac symptoms Sigmoid diverticulitis Abdominal pain Tachycardic and in soft blood pressure on presentation Has leukocytosis Had fluids and cefepime and Vanco in the ER Patient states he recently had a diverticulitis Continue antibiotics with Zosyn and Vanco-received in the emergency room N.p.o. for now. IV fluids. IV morphine as needed Has been getting Zosyn for now and vancomycin discontinued Awaiting surgery evaluation We will likely have GI follow-up as an outpatient for colonoscopy Less abdominal pain and has been tolerating full liquid diet Bowel is marked and abdominal pain is improved, no fever and or chills 1 out of 2 blood culture is growing gram-positive cocci in chain further identification is pending but bio fire remains negative Repeat blood cultures are taken We will advance diet tomorrow if tolerated and plan to discharge in a day or 2 Pain in the scrotum Ultrasound revealed acute orchitis History of orchitis before and was seen by urologist in the past Appreciate urology recommendation and input to continue current antibiotic We will have outpatient urology evaluation following discharge We will continue current antibiotic with intravenous Zosyn Examination of the scrotal area did not reveal any tenderness or swelling Advised to have follow-up appointment with his urologist as an outpatient Denies any more pain in the scrotum Diabetes Hold metformin Insulin sliding scale Follow blood sugars and HbA1c levels Hyperlipidemia On statin DVT prophylaxis SCDs for now Disposition monitoring med/telemetry Full code Admission and Anticipated Discharge Date Admission Date: May 12, 2023 Subjective 05/13/2023 The patient was seen and examined in medical telemetry unit He was admitted with abdominal, chest and scrotal pain Has been feeling a little better since admission Still complains pain in the abdomen and testicles but no chest pain and her palpitation 05/14/2023 The patient was seen and examined in medical telemetry unit He has been feeling much better today Still has left lower quadrant/groin pain Scrotal pain has diminished 05/15/2023 The patient was seen and examined in medical telemetry unit He has been feeling a little better Bowels moved and abdominal discomfort has decreased No fever and or chills Review of Systems Review of Systems: All systems reviewed and are unremarkable except as noted below Gastrointestinal: Minimal left quadrant and left groin pain Physical Exam Physical Exam: Lying in bed with some discomfort mainly due to abdominal pain. And scrotal pain Constitutional: well developed, well nourished, + ill appearing and + obese Eyes: PERRL, conjunctivae normal, anicteric sclerae ENMT: external ear and nose normal, oropharynx normal Neck: trachea midline, no thyromegaly Respiratory: no respiratory distress Auscultation: lungs clear to auscultation bilaterally Cardiovascular: Rate/Rhythm: regular rate and regular rhythm; not tachycardic Gastrointestinal (Abdomen): Inspection/Auscultation: normal bowel sounds; abdomen not distended Percussion/Palpation: + abdomen tender (Minimally tender left lower quadrant without guarding and no rigidity) and abdomen soft Musculoskeletal: No acute arthritis involving any joint Neurologic: normal touch/pain/proprioception and moves all extremities; no focal motor deficits Psychiatric: A+Ox3, euthymic affect Lymphatic: no cervical or axillary lymphadenopathy Results & Data Results & Data Vital Signs (Past 12 Hours) Vital Signs Temp Pulse Pulse Resp BP Pulse Ox O2 Del Method 05/15/23 15:06 37 C 55 L 18 143/81 H 94 Room Air 05/15/23 11:04 36.9 C 57 L 18 152/85 H 96 Room Air 05/15/23 07:27 36.7 C 77 18 144/77 H 96 Room Air 05/15/23 06:58 67 05/15/23 04:34 36.7 C 57 L 20 128/65 92 Room Air Laboratory Results Short CBC 05/15/23 Range/Units 07:29 WBC 9.55 (4.8-10.8) K/ul Hgb 11.2 L (14.0-18.0) g/dl Hct 34.3 L (42.0-52.0) % Plt Count 204 (130-400) K/uL BMP 05/15/23 07:29 Sodium 137 Potassium 4.0 Chloride 110 H Carbon Dioxide 19 L BUN 10 Creatinine 0.97 Glucose 108 H Calcium 8.1 L Medications Administered Current Inpatient Medications Acetaminophen (Acetaminophen 325 Mg Tab) 650 mg PO Q4H PRN PRN Reason: Pain or Fever Stop: 06/12/23 00:07 Last Admin: 05/13/23 21:10 Dose: 650 mg Dextrose (Dextrose 50% 50 Ml Syringe) 25 - 50 ml IV UD PRN; Protocol PRN Reason: Hypoglycemia Protocol Stop: 06/12/23 00:07 Glucagon (Glucagon For Inj 1 Mg Vial) 1 mg SQ UD PRN; Protocol PRN Reason: Hypoglycemia Protocol Stop: 06/12/23 00:07 Glucose (Glucose 10 Tab/Tube) 4 - 8 tab PO UD PRN; Protocol PRN Reason: Hypoglycemia Treatment Stop: 06/12/23 00:07 Glucose (Glucose 40% Gel 15 Gm Tube) 15 - 30 gm PO UD PRN; Protocol PRN Reason: Hypoglycemia Protocol Stop: 06/12/23 00:07 Sodium Chloride (Nss 1000ml) 1,000 mls @ 125 mls/hr IV .Q8H SACHA Stop: 06/11/23 21:29 Last Admin: 05/15/23 08:00 Dose: 125 mls/hr Piperacillin Sod/Tazobactam (Sod 4.5 gm/ Dextrose) 120 mls @ 30 mls/hr IV Q8H SACHA; Protocol Stop: 05/23/23 05:59 Last Admin: 05/15/23 14:30 Dose: 30 mls/hr Insulin Aspart (Insulin Aspart Per Unit Charge) 0 units SC ACHS SACHA Stop: 06/12/23 00:00 Last Admin: 05/15/23 13:22 Dose: Not Given Ketorolac Tromethamine (Ketorolac 30 Mg/Ml Vial) 30 mg IV Q6H PRN PRN Reason: Pain Stop: 05/18/23 11:25 Last Admin: 05/15/23 14:30 Dose: 30 mg Miscellaneous (Carbohydrates For Hypoglycemia ) 15 - 30 gm PO UD PRN PRN Reason: Hypoglycemia Protocol Stop: 06/12/23 00:07 Morphine Sulfate (Morphine Sulfate 4 Mg/Ml 1 Ml Carp\Vial) 3 mg IV Q3H PRN PRN Reason: Pain Stop: 05/27/23 00:07 Nitroglycerin (Nitroglycerin Sl 0.4 Mg/Tab Tab) 0.4 mg SL Q5M PRN PRN Reason: Chest Pain Stop: 06/12/23 00:07 Ondansetron HCl (Ondansetron Inj 2 Mg/Ml 2 Ml Vial) 4 mg IV Q6H PRN PRN Reason: Nausea Stop: 06/12/23 00:07 Last Admin: 05/13/23 16:37 Dose: 4 mg Rosuvastatin Calcium (Rosuvastatin Calcium 5 Mg Tab) 5 mg PO DAILY SACHA Stop: 06/12/23 08:59 Last Admin: 05/15/23 08:00 Dose: 5 mg Trazodone HCl (Trazodone Hcl 50 Mg Tab) 50 mg PO HS SACHA Stop: 06/12/23 20:59 Last Admin: 05/14/23 22:13 Dose: 50 mg Zolpidem Tartrate (Zolpidem Tartrate 10 Mg Tab) 10 mg PO HS PRN PRN Reason: Sleep Stop: 06/12/23 00:44 Last Admin: 05/14/23 22:14 Dose: 10 mg
[2023-05-15] MEDS: LOPERAMIDE HCL 2 MG CAP PO PRN (17:59)
[2023-05-15] MEDS ORDERED: VANCOMYCIN HCL 250 MG/5 ML SOLN PO SCH (18:00)
[2023-05-15] MEDS ORDERED: RASPBERRY SYRUP 5 ML UDP PO SCH (18:00)
[2023-05-15] MEDS: traZODone HCL 50 MG TAB PO SCH (22:09)
[2023-05-15] MEDS ORDERED: LORazepam 0.5 MG TAB PO STA (22:30)
[2023-05-15] MEDS: ZOLPIDEM TARTRATE 10 MG TAB PO PRN (22:42)
[2023-05-16] MEDS: SODIUM CHLORIDE 0.9% 1000ML 1,000 ML IV SCH (00:24)
[2023-05-16] MEDS: PIPERACILLIN/TAZOBACTAM 4.5 GM in DEXTROSE 5% 100 ML IV SCH ×3 (06:25→21:01)
[2023-05-16] MEDS: ROSUVASTATIN CALCIUM 5 MG TAB PO SCH (08:03)
[2023-05-16] MEDS: ONDANSETRON INJ 2 MG/ML 2 ML VIAL IV PRN (08:03)
[2023-05-16] MEDS: LOPERAMIDE HCL 2 MG CAP PO PRN (08:10)
[2023-05-16] MEDS: INSULIN ASPART PER UNIT CHARGE SC SCH ×4 (08:31→20:37)
[2023-05-16 09:22] LABS: Creatinine Clr Calc Pharmacy 93.9 ml/min; Est GFR (African American) 108.2 ml/min; Est GFR (Non-African American) 93.4 ml/min
--- NOTE | 2023-05-16 10:35 | Surgery Progress Note ---
Date of Service May 16, 2023 Assessment & Plan (1) Diverticulitis: Plan: Patient admitted for diverticulitis Reports not feeling much better but pain is mildly better feed mill tender to Palpation in lower quadrants Abdomen is still somewhat distended VSS, afebrile, WBC yesterday 9.5 Would continue IV antibiotics Continue clear liquid diet If no improvement may consider reimaging Patient seen and examined with Dr. Conley Admission and Anticipated Discharge Date Admission Date: May 12, 2023 Supervising Physician Co-Signing Physician Notes I personally saw and evaluated the patient with Dangelo LAUREN and agree with the assessment plan. 62-year-old male with diverticulitis He is tolerating a full liquid diet and passing some flatus without nausea and vomiting His leukocytosis has resolved but he still having some pain His vitals are all stable, no plans for any surgical intervention We will follow-up the results of the CAT scan that was ordered by medicine Subjective Patient admitted for diverticulitis Reports not feeling much better but pain is mildly better feed mill tender to Palpation in lower quadrants Abdomen is still somewhat distended Review of Systems Constitutional: no fever and no sweats Respiratory: no dyspnea Cardiovascular: no chest pain Gastrointestinal: + abdominal pain and + nausea; no vomiting Genitourinary: no problem reported Physical Exam Constitutional: cooperative; no acute distress Respiratory: normal respiratory effort and able to speak in complete sentences; no respiratory distress and does not use accessory muscles Cardiovascular: Rate/Rhythm: + bradycardic Gastrointestinal (Abdomen): Inspection/Auscultation: + abdomen distended Percussion/Palpation: + abdomen tender Results & Data Vital Signs (Past 12 Hours) Vital Signs Temp Pulse Pulse Resp BP Pulse Ox O2 Del Method 05/16/23 08:00 52 L 05/16/23 07:25 97.3 F L 62 16 140/85 95 Room Air 05/16/23 00:09 97.3 F L 77 14 151/84 H 100 Room Air 05/15/23 23:36 59 L PG Care Time/CCT Total # of Minutes Spent Total Time Spent with Patient: Total time spent is greater than 50% in coordination of care (as documented) at patient's floor/unit and/or counseling patient: Coding Level of Care Code 91442 SUB INP/OBS CARE 2/35MIN Diagnoses Diverticulitis K57.92
--- NOTE | 2023-05-16 12:36 | CT Scan Report ---
CT SCAN OF THE ABDOMEN AND PELVIS WITHOUT IV CONTRAST CLINICAL HISTORY: Follow-up diverticulitis. COMPARISON STUDY: Abdominal CT dated 05/12/2023. TECHNIQUE: CT scan of the abdomen and pelvis is performed from the lung bases to the proximal femora. Images are reviewed in the axial, sagittal, and coronal planes. IV contrast was not administered for this examination. Note the examination is suboptimal without IV contrast. A dose lowering technique was utilized adhering to the principles of ALARA. CT DOSE: 1291.33 mGy.cm FINDINGS: Lung bases: The heart is normal in size and without pericardial effusion. There are small pleural eff usions with dependent atelectasis. Interlobular septal thickening at the lung bases suggests fluid ov erload. There is a small hiatal hernia. Liver: The unenhanced liver is enlarged, measuring 20 cm in length. The liver demonstrates diffusely diminished attenuation indicating steatosis. There is no intrahepatic biliary ductal dilatation. A harper bcentimeter cyst is again noted in the right lobe. Gallbladder: There are gallstones. Mild inflammatory changes seen around the gallbladder. Spleen: Normal in size and attenuation. Pancreas: Unremarkable. Adrenal glands: Unremarkable. Kidneys: The unenhanced kidneys are normal in size and without hydronephrosis. There is a 3 mm nonobs tructing calculus on the left. No right renal calculi are identified and there is no ureteral stone. A 2.9 cm cyst is seen on the left. Abdominal vasculature: The abdominal aorta is normal in course and caliber noting mild atheroscleroti c calcification. Bowel: There is moderate to advanced diverticulosis of the sigmoid colon. There is wall thickening wi th surrounding inflammation involving the sigmoid colon consistent with acute diverticulitis. This is similar to the 05/12/2023 examination. The sigmoid colon approximates a left inguinal hernia. Infiltr ation around loops of jejunum in the left midabdomen has improved as compared to previous. No bowel o bstruction is seen. The appendix is well-visualized and normal. Peritoneum: No intraperitoneal free air is identified. There is trace pelvic ascites. Lymphadenopathy: None. Pelvic viscera: The prostate gland is surgically absent. Thickening of the superolateral bladder is l ikely related to adjacent diverticulitis.. There is a fat-containing left inguinal hernia. Findings s uggest previous right inguinal herniorrhaphy. Skeletal structures: No lytic or blastic lesions are seen. IMPRESSION: 1. Acute sigmoid diverticulitis is similar to the 05/12/2023 examination. If not recently performed, f ollow-up outpatient colonoscopy is recommended to further assess the underlying colon. 2. No intraperitoneal free air is identified and there is no organized fluid collection to suggest ab scess on this unenhanced examination. 3. Inflammatory change involving loops of jejunum in the left mid abdomen has improved from previous. 4. Wall thickening at the dome of the bladder is nonspecific and likely related to adjacent diverticu litis. Correlate with clinical findings and urinalysis. 5. Cholelithiasis with mild pericholecystic inflammation. Findings are nonspecific and acute cholecys titis is not excluded. Consider right upper quadrant ultrasound for further assessment. 6. Left-sided nephrolithiasis. 7. Hepatomegaly with hepatic steatosis. 8. Small pleural effusions with dependent consolidation. 9. Additional findings as above. ACT 112: Negative or not required by law. Electronically signed by: Mart Reddy M.D. 05/16/2023 12:34 PM
--- NOTE | 2023-05-16 15:23 | Hospitalist Progress Note ---
Date of Service May 16, 2023 Assessment & Plan (1) Atypical chest pain: Plan: 62-year-old male with past med significant for [place] macroglobulinemia currently under observation, hyperlipidemia, diabetes, presents with not feeling well. Was having chills, feeling cold, chest pain and shortness of breath and also abdominal pain, groin and scrotal pain.. 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 primary safe deposit clerk in [place] No acute cardiac symptoms Sigmoid diverticulitis Abdominal pain Tachycardic and in soft blood pressure on presentation Has leukocytosis Had fluids and cefepime and Vanco in the ER Patient states he recently had a diverticulitis Continue antibiotics with Zosyn and Vanco-received in the emergency room N.p.o. for now. IV fluids. IV morphine as needed Has been getting Zosyn for now and vancomycin discontinued Awaiting surgery evaluation We will likely have GI follow-up as an outpatient for colonoscopy Less abdominal pain and has been tolerating full liquid diet Bowel is marked and abdominal pain is improved, no fever and or chills 1 out of 2 blood culture is growing gram-positive cocci in chain further identification is pending but bio fire remains negative Repeat blood cultures are taken-negative Repeat CT of the abdomen and pelvis did show diverticulitis in the sigmoid colon but no evidence of abscess and or perforation and no bowel obstruction Will advance diet as tolerated Advised increased activity Pain in the scrotum Ultrasound revealed acute orchitis History of orchitis before and was seen by urologist in the past Appreciate urology recommendation and input to continue current antibiotic We will have outpatient urology evaluation following discharge We will continue current antibiotic with intravenous Zosyn Examination of the scrotal area did not reveal any tenderness or swelling Advised to have follow-up appointment with his urologist as an outpatient Denies any more pain in the scrotum-improving gradually Diabetes Hold metformin Insulin sliding scale Follow blood sugars and HbA1c levels-7.0 on 05/13/2023 Hyperlipidemia On statin DVT prophylaxis SCDs for now Disposition monitoring med/telemetry Full code Admission and Anticipated Discharge Date Admission Date: May 12, 2023 Subjective 05/13/2023 The patient was seen and examined in medical telemetry unit He was admitted with abdominal, chest and scrotal pain Has been feeling a little better since admission Still complains pain in the abdomen and testicles but no chest pain and her palpitation 05/14/2023 The patient was seen and examined in medical telemetry unit He has been feeling much better today Still has left lower quadrant/groin pain Scrotal pain has diminished 05/15/2023 The patient was seen and examined in medical telemetry unit He has been feeling a little better Bowels moved and abdominal discomfort has decreased No fever and or chills 05/16/2023 The patient was seen and examined in medical telemetry unit He has been feeling a little better Abdomen is distended but feels better following bowel movement and remains soft Wanted to have his diet advanced Review of Systems Review of Systems: All systems reviewed and are unremarkable except as noted below Gastrointestinal: Minimal left quadrant and left groin pain Physical Exam Physical Exam: Lying in bed with some discomfort mainly due to abdominal pain. And scrotal pain Constitutional: well developed, well nourished, + ill appearing and + obese Eyes: PERRL, conjunctivae normal, anicteric sclerae ENMT: external ear and nose normal, oropharynx normal Neck: trachea midline, no thyromegaly Respiratory: no respiratory distress Auscultation: lungs clear to auscultation bilaterally Cardiovascular: Rate/Rhythm: regular rate and regular rhythm; not tachycardic Gastrointestinal (Abdomen): Inspection/Auscultation: normal bowel sounds; abdomen not distended Percussion/Palpation: + abdomen tender (Minimally tender left lower quadrant without guarding and no rigidity) and abdomen soft Neurologic: normal touch/pain/proprioception and moves all extremities; no focal motor deficits Psychiatric: A+Ox3, euthymic affect Lymphatic: no cervical or axillary lymphadenopathy Results & Data Results & Data Vital Signs (Past 12 Hours) Vital Signs Temp Pulse Pulse Resp BP Pulse Ox O2 Del Method 05/16/23 11:20 36.4 C L 51 L 16 143/78 H 97 Room Air 05/16/23 08:00 52 L 05/16/23 07:25 36.3 C L 62 16 140/85 95 Room Air Laboratory Results [facility] 05/16/23 08:09 Creatinine 0.88 Medications Administered Current Inpatient Medications Acetaminophen (Acetaminophen 325 Mg Tab) 650 mg PO Q4H PRN PRN Reason: Pain or Fever Stop: 06/12/23 00:07 Last Admin: 05/13/23 21:10 Dose: 650 mg Dextrose (Dextrose 50% 50 Ml Syringe) 25 - 50 ml IV UD PRN; Protocol PRN Reason: Hypoglycemia Protocol Stop: 06/12/23 00:07 Glucagon (Glucagon For Inj 1 Mg Vial) 1 mg SQ UD PRN; Protocol PRN Reason: Hypoglycemia Protocol Stop: 06/12/23 00:07 Glucose (Glucose 10 Tab/Tube) 4 - 8 tab PO UD PRN; Protocol PRN Reason: Hypoglycemia Treatment Stop: 06/12/23 00:07 Glucose (Glucose 40% Gel 15 Gm Tube) 15 - 30 gm PO UD PRN; Protocol PRN Reason: Hypoglycemia Protocol Stop: 06/12/23 00:07 Sodium Chloride (Nss 1000ml) 1,000 mls @ 125 mls/hr IV .Q8H SACHA Stop: 06/11/23 21:29 Last Infusion: 05/16/23 05:26 Dose: 0 mls/hr Piperacillin Sod/Tazobactam (Sod 4.5 gm/ Dextrose) 120 mls @ 30 mls/hr IV Q8H SACHA; Protocol Stop: 05/23/23 05:59 Last Admin: 05/16/23 13:37 Dose: 30 mls/hr Insulin Aspart (Insulin Aspart Per Unit Charge) 0 units SC ACHS SACHA Stop: 06/12/23 00:00 Last Admin: 05/16/23 12:17 Dose: Not Given Ketorolac Tromethamine (Ketorolac 30 Mg/Ml Vial) 30 mg IV Q6H PRN PRN Reason: Pain Stop: 05/18/23 11:25 Last Admin: 05/15/23 14:30 Dose: 30 mg Loperamide HCl (Loperamide Hcl 2 Mg Cap) 2 mg PO Q3H PRN PRN Reason: Diarrhea Stop: 06/14/23 17:45 Last Admin: 05/16/23 08:10 Dose: 2 mg Miscellaneous (Carbohydrates For Hypoglycemia ) 15 - 30 gm PO UD PRN PRN Reason: Hypoglycemia Protocol Stop: 06/12/23 00:07 Morphine Sulfate (Morphine Sulfate 4 Mg/Ml 1 Ml Carp\Vial) 3 mg IV Q3H PRN PRN Reason: Pain Stop: 05/27/23 00:07 Nitroglycerin (Nitroglycerin Sl 0.4 Mg/Tab Tab) 0.4 mg SL Q5M PRN PRN Reason: Chest Pain Stop: 06/12/23 00:07 Ondansetron HCl (Ondansetron Inj 2 Mg/Ml 2 Ml Vial) 4 mg IV Q6H PRN PRN Reason: Nausea Stop: 06/12/23 00:07 Last Admin: 05/16/23 08:03 Dose: 4 mg Rosuvastatin Calcium (Rosuvastatin Calcium 5 Mg Tab) 5 mg PO DAILY SACHA Stop: 06/12/23 08:59 Last Admin: 05/16/23 08:03 Dose: 5 mg Trazodone HCl (Trazodone Hcl 50 Mg Tab) 50 mg PO HS SACHA Stop: 06/12/23 20:59 Last Admin: 05/15/23 22:09 Dose: 50 mg Zolpidem Tartrate (Zolpidem Tartrate 10 Mg Tab) 10 mg PO HS PRN PRN Reason: Sleep Stop: 06/12/23 00:44 Last Admin: 05/15/23 22:42 Dose: 10 mg
[2023-05-16] MEDS: KETOROLAC 30 MG/ML VIAL IV PRN (16:21)
[2023-05-16] MEDS: traZODone HCL 50 MG TAB PO SCH (21:01)
[2023-05-16] MEDS: ZOLPIDEM TARTRATE 10 MG TAB PO PRN (21:01)
[2023-05-17] MEDS: PIPERACILLIN/TAZOBACTAM 4.5 GM in DEXTROSE 5% 100 ML IV SCH (06:32)
[2023-05-17 07:53] LABS: Basophils # (auto) 0.04 K/uL (0-0.2); Basophils % (auto) 0.5 %; Eosinophils # (auto) 0.28 K/uL (0-0.50); Eosinophils % (auto) 3.7 %; Hematocrit (blood only) 30.7 % (42.0-52.0); Hemoglobin 10.5 g/dl (14.0-18.0); Immature Granulocytes # (auto) 0.02 K/uL (0.01-0.20); Immature Granulocytes % (auto) 0.3 %; Lymphocytes # (auto) 1.56 K/uL (1.2-3.4); Lymphocytes % (auto) 20.9 %; Mean Corpuscular Hemoglobin 30.5 pg (25.0-34.0); Mean Corpuscular Hgb Conc 34.2 g/dL (32.0-36.0); Mean Corpuscular Volume 89.2 fL (80.0-100.0); Monocytes # (auto) 0.73 K/uL (0.11-0.59); Monocytes % (auto) 9.8 %; Neutrophils # (auto) 4.84 K/uL (1.40-6.50); Neutrophils % (auto) 64.8 %; Platelet Count 260 K/uL (130-400); RDW Coefficient of Variation 14.2 % (11.5-14.5); RDW Standard Deviation 45.5 fL (36.4-46.3); Red Blood Count 3.44 M/uL (4.70-6.10); White Blood Count 7.47 K/ul (4.8-10.8)
[2023-05-17] MEDS: SODIUM CHLORIDE 0.9% 1000ML 1,000 ML IV SCH (07:54)
[2023-05-17 08:12] LABS: BUN Creatinine Ratio 7.4 (10-20); Calcium 8.5 mg/dl (8.6-10.3); Creatinine Clr Calc Pharmacy 87.8 ml/min; Est GFR (African American) 101.7 ml/min; Est GFR (Non-African American) 87.8 ml/min
[2023-05-17] MEDS: INSULIN ASPART PER UNIT CHARGE SC SCH ×4 (09:54→21:50)
[2023-05-17] MEDS: ROSUVASTATIN CALCIUM 5 MG TAB PO SCH (10:05)
--- NOTE | 2023-05-17 10:15 | Surgery Progress Note ---
Date of Service May 17, 2023 Assessment & Plan (1) Diverticulitis: Plan: patient report is he feeling about the same as yesterday Has complaint of bilateral lower quadrant pain with left side being worse that radiates to left groin area/upper inner thigh Denies N/V, SOB, CP Tolerating low fiber diet Had a Small nugget BM this AM WBC 7.4 , VSS Admission and Anticipated Discharge Date Admission Date: May 12, 2023 Supervising Physician Co-Signing Physician Notes I personally saw and evaluated the patient with Dangelo LAUREN and agree with the assessment plan. 62-year-old male with diverticulitis improved His CAT scan was reviewed by me, stable to improved diverticulitis He has no white count tolerating a low fiber diet He can be discharged from surgical standpoint follow-up with me as an outpatient in 2 weeks Surgery will sign off at this time please call with any questions or concerns Subjective patient report is he feeling about the same as yesterday Has complaint of bilateral lower quadrant pain with left side being worse that radiates to left groin area/upper inner thigh Denies N/V, SOB, CP Tolerating diet Review of Systems Constitutional: no fever, no chills and no sweats Respiratory: no dyspnea Cardiovascular: no chest pain Gastrointestinal: + abdominal pain; no nausea and no vomiting Genitourinary: no problem reported Physical Exam Physical Exam: alert awake Constitutional: cooperative and comfortable; no acute distress Respiratory: normal respiratory effort and able to speak in complete sentences; no respiratory distress Cardiovascular: Rate/Rhythm: regular rate Gastrointestinal (Abdomen): Inspection/Auscultation: abdomen not distended Percussion/Palpation: + abdomen tender and abdomen soft; no guarding Results & Data Vital Signs (Past 12 Hours) Vital Signs Temp Pulse Pulse Pulse Resp BP Pulse Ox 05/17/23 07:05 98.4 F 62 16 148/89 H 92 05/17/23 08:10 61 05/17/23 08:04 97.9 F 60 20 145/83 H 96 05/17/23 03:00 98.2 F 61 18 149/83 H 93 O2 Del Method 05/17/23 07:05 Room Air 05/17/23 08:10 05/17/23 08:04 Room Air 05/17/23 03:00 Room Air PG Care Time/CCT Total # of Minutes Spent Total Time Spent with Patient: Total time spent is greater than 50% in coordination of care (as documented) at patient's floor/unit and/or counseling patient: Coding Level of Care Code 16894 SUB INP/OBS CARE Diagnoses Diverticulitis K57.92
--- NOTE | 2023-05-17 14:52 | Hospitalist Progress Note ---
Date of Service May 17, 2023 Assessment & Plan (1) Atypical chest pain: Plan: 62-year-old male with past med significant for [place] macroglobulinemia currently under observation, hyperlipidemia, diabetes, presents with not feeling well. Was having chills, feeling cold, chest pain and shortness of breath and also abdominal pain, groin and scrotal pain.. Patient was tachycardic and hypotensive on presentation improved with the fluids and antibiotics Chest pain Initial work-up with troponin and EKG unremarkable We will do serial cardiac enzymes and echocardiogram Appreciate cardiology input and recommendation for stress test as an outpatient with his own inspector mechanical in [place]. 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 primary inspector mechanical in [place] No acute cardiac symptoms Left groin pain Has been going on for a long time No lump on examination but that side looks more floppy compared with the lateral right side CT of the abdomen pelvis did show fat-containing left inguinal hernia Likely the cause of pain The pain persist can follow-up with outpatient surgery Sigmoid diverticulitis Abdominal pain Tachycardic and in soft blood pressure on presentation Has leukocytosis Had fluids and cefepime and Vanco in the ER Patient states he recently had a diverticulitis Continue antibiotics with Zosyn and Vanco-received in the emergency room N.p.o. for now. IV fluids. IV morphine as needed Has been getting Zosyn for now and vancomycin discontinued Awaiting surgery evaluation We will likely have GI follow-up as an outpatient for colonoscopy Less abdominal pain and has been tolerating full liquid diet Bowel is marked and abdominal pain is improved, no fever and or chills 1 out of 2 blood culture is growing gram-positive cocci in chain further identification is pending but bio fire remains negative Repeat blood cultures are taken-negative Repeat CT of the abdomen and pelvis did show diverticulitis in the sigmoid colon but no evidence of abscess and or perforation and no bowel obstruction Will start oral antibiotic and advised to increase mobility Likely discharge tomorrow Pain in the scrotum Ultrasound revealed acute orchitis History of orchitis before and was seen by urologist in the past Appreciate urology recommendation and input to continue current antibiotic We will have outpatient urology evaluation following discharge We will continue current antibiotic with intravenous Zosyn Examination of the scrotal area did not reveal any tenderness or swelling Advised to have follow-up appointment with his urologist as an outpatient Denies any more pain in the scrotum-improving gradually Diabetes Hold metformin Insulin sliding scale Follow blood sugars and HbA1c levels-7.0 on 05/13/2023 Hyperlipidemia On statin DVT prophylaxis SCDs for now Disposition monitoring med/telemetry Full code Admission and Anticipated Discharge Date Admission Date: May 12, 2023 Subjective 05/13/2023 The patient was seen and examined in medical telemetry unit He was admitted with abdominal, chest and scrotal pain Has been feeling a little better since admission Still complains pain in the abdomen and testicles but no chest pain and her palpitation 05/14/2023 The patient was seen and examined in medical telemetry unit He has been feeling much better today Still has left lower quadrant/groin pain Scrotal pain has diminished 05/15/2023 The patient was seen and examined in medical telemetry unit He has been feeling a little better Bowels moved and abdominal discomfort has decreased No fever and or chills 05/16/2023 The patient was seen and examined in medical telemetry unit He has been feeling a little better Abdomen is distended but feels better following bowel movement and remains soft Wanted to have his diet advanced 05/17/2023 The patient was seen and examined in medical telemetry unit He has been much better but complains today of left groin pain which has been ongoing for a long time-secondary to fat-containing left inguinal hernia Has had x-ray in the ER with an evidence of severe arthritis involving the left hip The pain is likely secondary to left-sided orchitis/epididymitis and also left- sided diverticulitis He has been tolerating low fiber diet and has been moving bowels normally Review of Systems Review of Systems: All systems reviewed and are unremarkable except as noted below Gastrointestinal: Minimal left quadrant and left groin pain Physical Exam Physical Exam: Lying in bed with some discomfort mainly due to abdominal pain. And scrotal pain Constitutional: well developed, well nourished, + ill appearing and + obese Eyes: PERRL, conjunctivae normal, anicteric sclerae ENMT: external ear and nose normal, oropharynx normal Neck: trachea midline, no thyromegaly Respiratory: no respiratory distress Auscultation: lungs clear to auscultation bilaterally Cardiovascular: Rate/Rhythm: regular rate and regular rhythm; not tachycardic Gastrointestinal (Abdomen): Inspection/Auscultation: normal bowel sounds; abdomen not distended Percussion/Palpation: + abdomen tender (Minimally tender left lower quadrant without guarding and no rigidity) and abdomen soft Musculoskeletal: Examination of the left groin did not show any lump and/or local tenderness. Neurologic: normal touch/pain/proprioception and moves all extremities; no focal motor deficits Psychiatric: A+Ox3, euthymic affect Lymphatic: no cervical or axillary lymphadenopathy Results & Data Results & Data Vital Signs (Past 12 Hours) Vital Signs Temp Pulse Pulse Pulse Resp BP Pulse Ox 05/17/23 07:05 36.9 C 62 16 148/89 H 92 05/17/23 08:10 61 05/17/23 08:04 36.6 C 60 20 145/83 H 96 05/17/23 03:00 36.8 C 61 18 149/83 H 93 O2 Del Method 05/17/23 07:05 Room Air 05/17/23 08:10 05/17/23 08:04 Room Air 05/17/23 03:00 Room Air Laboratory Results Short CBC 05/17/23 Range/Units 07:11 WBC 7.47 (4.8-10.8) K/ul Hgb 10.5 L (14.0-18.0) g/dl Hct 30.7 L (42.0-52.0) % Plt Count 260 (130-400) K/uL BMP 05/17/23 07:11 Sodium 138 Potassium 4.0 Chloride 108 H Carbon Dioxide 23 BUN 7 Creatinine 0.94 Glucose 120 H Calcium 8.5 L Medications Administered Current Inpatient Medications Acetaminophen (Acetaminophen 325 Mg Tab) 650 mg PO Q4H PRN PRN Reason: Pain or Fever Stop: 06/12/23 00:07 Last Admin: 05/13/23 21:10 Dose: 650 mg Amoxicillin/Clavulanate Potassium (Amoxicillin/Clavulanate 875 Mg Tab) 1 tab PO BIDM [facility]; Protocol Stop: 05/27/23 16:59 Dextrose (Dextrose 50% 50 Ml Syringe) 25 - 50 ml IV UD PRN; Protocol PRN Reason: Hypoglycemia Protocol Stop: 06/12/23 00:07 Glucagon (Glucagon For Inj 1 Mg Vial) 1 mg SQ UD PRN; Protocol PRN Reason: Hypoglycemia Protocol Stop: 06/12/23 00:07 Glucose (Glucose 10 Tab/Tube) 4 - 8 tab PO UD PRN; Protocol PRN Reason: Hypoglycemia Treatment Stop: 06/12/23 00:07 Glucose (Glucose 40% Gel 15 Gm Tube) 15 - 30 gm PO UD PRN; Protocol PRN Reason: Hypoglycemia Protocol Stop: 06/12/23 00:07 Insulin Aspart (Insulin Aspart Per Unit Charge) 0 units SC ACHS [facility]AC[facility] Stop: 06/12/23 00:00 Last Admin: 05/17/23 13:57 Dose: 4 units Ketorolac Tromethamine (Ketorolac 30 Mg/Ml Vial) 30 mg IV Q6H PRN PRN Reason: Pain Stop: 05/18/23 11:25 Last Admin: 05/16/23 16:21 Dose: 30 mg Loperamide HCl (Loperamide Hcl 2 Mg Cap) 2 mg PO Q3H PRN PRN Reason: Diarrhea Stop: 06/14/23 17:45 Last Admin: 05/16/23 08:10 Dose: 2 mg Miscellaneous (Carbohydrates For Hypoglycemia ) 15 - 30 gm PO UD PRN PRN Reason: Hypoglycemia Protocol Stop: 06/12/23 00:07 Morphine Sulfate (Morphine Sulfate 4 Mg/Ml 1 Ml Carp\Vial) 3 mg IV Q3H PRN PRN Reason: Pain Stop: 05/27/23 00:07 Nitroglycerin (Nitroglycerin Sl 0.4 Mg/Tab Tab) 0.4 mg SL Q5M PRN PRN Reason: Chest Pain Stop: 06/12/23 00:07 Ondansetron HCl (Ondansetron Inj 2 Mg/Ml 2 Ml Vial) 4 mg IV Q6H PRN PRN Reason: Nausea Stop: 06/12/23 00:07 Last Admin: 05/16/23 08:03 Dose: 4 mg Rosuvastatin Calcium (Rosuvastatin Calcium 5 Mg Tab) 5 mg PO DAILY SACHA Stop: 06/12/23 08:59 Last Admin: 05/17/23 10:05 Dose: 5 mg Trazodone HCl (Trazodone Hcl 50 Mg Tab) 50 mg PO HS SACHA Stop: 06/12/23 20:59 Last Admin: 05/16/23 21:01 Dose: 50 mg Zolpidem Tartrate (Zolpidem Tartrate 10 Mg Tab) 10 mg PO HS PRN PRN Reason: Sleep Stop: 06/12/23 00:44 Last Admin: 05/16/23 21:01 Dose: 10 mg
[2023-05-17] MEDS ORDERED: HYDROCORTISONE HC 2.5% CRM 30GM TUBE EXT PRN (16:45)
[2023-05-17] MEDS: AMOXICILLIN/CLAVULANATE 875 MG TAB PO SCH (18:12)
[2023-05-17] MEDS ORDERED: SODIUM CHLORIDE 0.9% 1000ML 1,000 ML IV ONE (21:13)
[2023-05-17] MEDS: ZOLPIDEM TARTRATE 10 MG TAB PO PRN (21:49)
[2023-05-17] MEDS: traZODone HCL 50 MG TAB PO SCH (21:49)
[2023-05-17] MEDS: KETOROLAC 30 MG/ML VIAL IV PRN (21:49)
[2023-05-17] MEDS: DICLOFENAC SOD 1% GEL 100 GM TUBE EXT SCH (21:53)
[2023-05-18 06:33] LABS: Basophils # (auto) 0.04 K/uL (0.00-0.20); Basophils % (auto) 0.5 %; Eosinophils # (auto) 0.33 K/uL (0.00-0.50); Eosinophils % (auto) 4.2 %; Hematocrit (blood only) 31.9 % (42.0-52.0); Hemoglobin 10.8 g/dl (14.0-18.0); Immature Granulocytes # (auto) 0.05 K/uL (0.01-0.20); Immature Granulocytes % (auto) 0.6 %; Lymphocytes # (auto) 1.98 K/uL (1.20-3.40); Lymphocytes % (auto) 25.2 %; Mean Corpuscular Hemoglobin 30.4 pg (25.0-34.0); Mean Corpuscular Hgb Conc 33.9 g/dL (32.0-36.0); Mean Corpuscular Volume 89.9 fL (80.0-100.0); Mean Platelet Volume 10.2 fL (9.4-12.4); Monocytes # (auto) 0.67 K/uL (0.11-0.59); Monocytes % (auto) 8.5 %; Platelet Count 278 K/uL (130-400); RDW Coefficient of Variation 14.2 % (11.5-14.5); Red Blood Count 3.55 M/uL (4.70-6.10); White Blood Count 7.87 K/ul (4.8-10.8)
[2023-05-18 06:48] LABS: BUN Creatinine Ratio 10.3 (10-20); Calcium 8.6 mg/dl (8.6-10.3); Creatinine Clr Calc Pharmacy 94.5 ml/min; Est GFR (African American) 108.7 ml/min; Est GFR (Non-African American) 93.8 ml/min
[2023-05-18 09:10] VITALS: TEMP 97.7; O2SAT 94
[2023-05-18] MEDS: INSULIN ASPART PER UNIT CHARGE SC SCH ×2 (09:27→13:19)
[2023-05-18] MEDS: DICLOFENAC SOD 1% GEL 100 GM TUBE EXT SCH ×2 (09:27→13:42)
[2023-05-18] MEDS: AMOXICILLIN/CLAVULANATE 875 MG TAB PO SCH (09:28)
[2023-05-18] MEDS: ROSUVASTATIN CALCIUM 5 MG TAB PO SCH (09:28)
--- NOTE | 2023-05-18 13:17 | Hospitalist Progress Note ---
Date of Service May 18, 2023 Assessment & Plan (1) Atypical chest pain: Plan: 62-year-old male with past med significant for [place] macroglobulinemia currently under observation, hyperlipidemia, diabetes, presents with not feeling well. Was having chills, feeling cold, chest pain and shortness of breath and also abdominal pain, groin and scrotal pain.. Patient was tachycardic and hypotensive on presentation improved with the fluids and antibiotics Chest pain Initial work-up with troponin and EKG unremarkable We will do serial cardiac enzymes and echocardiogram Appreciate cardiology input and recommendation for stress test as an outpatient with his own loan coordinator in [place]. 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 primary loan coordinator in [place] No acute cardiac symptoms Fat-containing left inguinal hernia Left groin pain Has been going on for a long time No lump on examination but that side looks more floppy compared with the lateral right side CT of the abdomen pelvis did show fat-containing left inguinal hernia Likely the cause of pain The pain persist can follow-up with outpatient surgery Left groin pain is due to fat-containing left inguinal hernia Will need to have a follow-up with surgeon as an outpatient Sigmoid diverticulitis Abdominal pain Tachycardic and in soft blood pressure on presentation Has leukocytosis Had fluids and cefepime and Vanco in the ER Patient states he recently had a diverticulitis Continue antibiotics with Zosyn and Vanco-received in the emergency room N.p.o. for now. IV fluids. IV morphine as needed Has been getting Zosyn for now and vancomycin discontinued Awaiting surgery evaluation We will likely have GI follow-up as an outpatient for colonoscopy Less abdominal pain and has been tolerating full liquid diet Bowel is marked and abdominal pain is improved, no fever and or chills 1 out of 2 blood culture is growing gram-positive cocci in chain further id entification is pending but bio fire remains negative Repeat blood cultures are taken-negative Repeat CT of the abdomen and pelvis did show diverticulitis in the sigmoid colon but no evidence of abscess and or perforation and no bowel obstruction Will start oral antibiotic and advised to increase mobility Discharge this afternoon Pain in the scrotum Ultrasound revealed acute orchitis History of orchitis before and was seen by urologist in the past Appreciate urology recommendation and input to continue current antibiotic We will have outpatient urology evaluation following discharge We will continue current antibiotic with intravenous Zosyn Examination of the scrotal area did not reveal any tenderness or swelling Advised to have follow-up appointment with his urologist as an outpatient Denies any more pain in the scrotum-improving gradually Strongly advised to have follow-up with his urologist Diabetes Hold metformin Insulin sliding scale Follow blood sugars and HbA1c levels-7.0 on 05/13/2023 Hyperlipidemia On statin DVT prophylaxis SCDs for now Disposition monitoring med/telemetry Full code Admission and Anticipated Discharge Date Admission Date: May 12, 2023 Subjective 05/13/2023 The patient was seen and examined in medical telemetry unit He was admitted with abdominal, chest and scrotal pain Has been feeling a little better since admission Still complains pain in the abdomen and testicles but no chest pain and her palpitation 05/14/2023 The patient was seen and examined in medical telemetry unit He has been feeling much better today Still has left lower quadrant/groin pain Scrotal pain has diminished 05/15/2023 The patient was seen and examined in medical telemetry unit He has been feeling a little better Bowels moved and abdominal discomfort has decreased No fever and or chills 05/16/2023 The patient was seen and examined in medical telemetry unit He has been feeling a little better Abdomen is distended but feels better following bowel movement and remains soft Wanted to have his diet advanced 05/17/2023 The patient was seen and examined in medical telemetry unit He has been much better but complains today of left groin pain which has been ongoing for a long time-secondary to fat-containing left inguinal hernia Has had x-ray in the ER with an evidence of severe arthritis involving the left hip The pain is likely secondary to left-sided orchitis/epididymitis and also left- sided diverticulitis He has been tolerating low fiber diet and has been moving bowels normally 05/18/2023 The patient was seen and examined in medical telemetry unit He still complains to have pain in the left groin but denies any abdominal pain, nausea and or vomiting He has been tolerating low fiber diet without any problem Denies any pain in the scrotum Review of Systems Review of Systems: All systems reviewed and are unremarkable except as noted below Physical Exam Physical Exam: Lying in bed with some discomfort mainly due to abdominal pain. And scrotal pain Constitutional: well developed, well nourished, + ill appearing and + obese Eyes: PERRL, conjunctivae normal, anicteric sclerae ENMT: external ear and nose normal, oropharynx normal Neck: trachea midline, no thyromegaly Respiratory: no respiratory distress Auscultation: lungs clear to auscultat ion bilaterally Cardiovascular: Rate/Rhythm: regular rate and regular rhythm; not tachycardic Gastrointestinal (Abdomen): Inspection/Auscultation: normal bowel sounds; abdomen not distended Percussion/Palpation: + abdomen tender (Minimally tender left lower quadrant without guarding and no rigidity) and abdomen soft Musculoskeletal: No acute arthritis involving any joint Neurologic: normal touch/pain/proprioception and moves all extremities; no focal motor deficits Psychiatric: A+Ox3, euthymic affect Lymphatic: no cervical or axillary lymphadenopathy Results & Data Results & Data Vital Signs (Past 12 Hours) Vital Signs Temp Pulse Pulse Pulse Resp BP Pulse Ox 05/18/23 12:49 36.5 C 64 17 137/78 94 05/18/23 10:06 50 L 05/18/23 09:09 36.5 C 59 L 17 156/85 H 94 05/18/23 03:04 36.4 C L 59 L 18 163/87 H 96 O2 Del Method 05/18/23 12:49 Room Air 05/18/23 10:06 05/18/23 09:09 Room Air 05/18/23 03:04 Room Air Laboratory Results Short CBC 05/18/23 Range/Units 05:36 WBC 7.87 (4.8-10.8) K/ul Hgb 10.8 L (14.0-18.0) g/dl Hct 31.9 L (42.0-52.0) % Plt Count 278 (130-400) K/uL BMP 05/18/23 05:36 Sodium 139 Potassium 4.0 Chloride 108 H Carbon Dioxide 23 BUN 9 Creatinine 0.87 Glucose 97 Calcium 8.6 Medications Administered Current Inpatient Medications Acetaminophen (Acetaminophen 325 Mg Tab) 650 mg PO Q4H PRN PRN Reason: Pain or Fever Stop: 06/12/23 00:07 Last Admin: 05/13/23 21:10 Dose: 650 mg Amoxicillin/Clavulanate Potassium (Amoxicillin/Clavulanate 875 Mg Tab) 1 tab PO BIDM [facility]; Protocol Stop: 05/27/23 16:59 Last Admin: 05/18/23 09:28 Dose: 1 tab Dextrose (Dextrose 50% 50 Ml Syringe) 25 - 50 ml IV UD PRN; Protocol PRN Reason: Hypoglycemia Protocol Stop: 06/12/23 00:07 Diclofenac Sodium (Diclofenac Sod 1% Gel 100 Gm Tube) 2 gm EXT TID SACHA; Protocol Stop: 06/16/23 20:59 Last Admin: 05/18/23 09:27 Dose: 2 gm Glucagon (Glucagon For Inj 1 Mg Vial) 1 mg SQ UD PRN; Protocol PRN Reason: Hypoglycemia Protocol Stop: 06/12/23 00:07 Glucose (Glucose 10 Tab/Tube) 4 - 8 tab PO UD PRN; Protocol PRN Reason: Hypoglycemia Treatment Stop: 06/12/23 00:07 Glucose (Glucose 40% Gel 15 Gm Tube) 15 - 30 gm PO UD PRN; Protocol PRN Reason: Hypoglycemia Protocol Stop: 06/12/23 00:07 Hydrocortisone (Hydrocortisone Hc 2.5% Crm 30gm Tube) 1 appln EXT TID PRN PRN Reason: Hemorrhoids Stop: 06/16/23 16:44 Last Admin: 05/17/23 18:01 Dose: 1 appln Insulin Aspart (Insulin Aspart Per Unit Charge) 0 units SC ACHS [facility] Stop: 06/12/23 00:00 Last Admin: 05/18/23 09:27 Dose: 3 units Loperamide HCl (Loperamide Hcl 2 Mg Cap) 2 mg PO Q3H PRN PRN Reason: Diarrhea Stop: 06/14/23 17:45 Last Admin: 05/16/23 08:10 Dose: 2 mg Miscellaneous (Carbohydrates For Hypoglycemia ) 15 - 30 gm PO UD PRN PRN Reason: Hypoglycemia Protocol Stop: 06/12/23 00:07 Morphine Sulfate (Morphine Sulfate 4 Mg/Ml 1 Ml Carp\Vial) 3 mg IV Q3H PRN PRN Reason: Pain Stop: 05/27/23 00:07 Nitroglycerin (Nitroglycerin Sl 0.4 Mg/Tab Tab) 0.4 mg SL Q5M PRN PRN Reason: Chest Pain Stop: 06/12/23 00:07 Ondansetron HCl (Ondansetron Inj 2 Mg/Ml 2 Ml Vial) 4 mg IV Q6H PRN PRN Reason: Nausea Stop: 06/12/23 00:07 Last Admin: 05/16/23 08:03 Dose: 4 mg Rosuvastatin Calcium (Rosuvastatin Calcium 5 Mg Tab) 5 mg PO DAILY SACHA Stop: 06/12/23 08:59 Last Admin: 05/18/23 09:28 Dose: 5 mg Trazodone HCl (Trazodone Hcl 50 Mg Tab) 50 mg PO HS SACHA Stop: 06/12/23 20:59 Last Admin: 05/17/23 21:49 Dose: 50 mg Zolpidem Tartrate (Zolpidem Tartrate 10 Mg Tab) 10 mg PO HS PRN PRN Reason: Sleep Stop: 06/12/23 00:44 Last Admin: 05/17/23 21:49 Dose: 10 mg
[2023-05-18 13:42] VITALS: BP 122/71
[2023-05-18 16:35] VITALS: PULSE 58
--- NOTE | 2023-05-18 21:54 | Discharge Summary ---
Date of Service May 18, 2023 Admission HPI Per Admitting Provider 62-year-old male with past med significant for [place] macroglobulinemia currently under observation, hyperlipidemia, diabetes, presents with not feeling well. 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 He has some rectal pain and urge to go to the bathroom but was not able to move his bowels . Also was having a lot of back pain and lower abdominal pain and groin pain and scrotal pain. [place] nauseous. [place] low-grade temperature. [place] lightheaded. Patient states he was recently treated for diverticulitis. Says he fell in October of this year on his left side from his trailer and had multiple imaging studies and follow with orthopedics which showed some injury to his left lower extremity and he has a follow-up appointment with Ortho. No cough. No blurred visions. Currently hemodynamically stable. Past medical history as mentioned above Past surgical history prostate surgery, hernia surgery Social history used to chew tobacco but quit around , alcohol rarely Family history mother had lung cancer. Father had UT. Paternal grandfather UT Admission Exam Per Admitting Provider Physical Exam: General- Not in distress Head- atraumatic Eyes- PERRL. ENT- oropharynx clear Neck- supple, no JVD. Lungs- clear to auscultation no wheezing or crackles Heart- regular rate and rhythm; no murmur, no gallop. Abdomen- normal bowel sounds, soft, tenderness in lower abdomen and groins . Tender scrotum. No obvious erythema seen. Extremities- no pretibial edema, no erythema seen. Neuro- alert, oriented x 3; PERRL, no facial palsy; no dysarthria; obeys commands, moves extremities Skin- warm & dry Principal Diagnosis Acute sigmoid diverticulitis, left-sided orchitis with history of left testicular pain, atypical chest pain-no ACS, fat-containing left inguinal hernia Discharge Exam Lying in bed with some discomfort mainly due to abdominal pain. And scrotal pain Constitutional well developed, well nourished, + ill appearing and + obese Eyes PERRL, conjunctivae normal, anicteric sclerae ENMT external ear and nose normal, oropharynx normal Neck trachea midline, no thyromegaly Respiratory no respiratory distress Auscultation: lungs clear to auscultation bilaterally Cardiovascular Rate/Rhythm: regular rate and regular rhythm; not tachycardic Gastrointestinal (Abdomen) Inspection/Auscultation: normal bowel sounds; abdomen not distended Percussion/Palpation: + abdomen tender (Minimally tender left lower quadrant without guarding and no rigidity) and abdomen soft Neurologic normal touch/pain/proprioception and moves all extremities; no focal motor deficits Psychiatric A+Ox3, euthymic affect Lymphatic no cervical or axillary lymphadenopathy Discharge Data Allergies Allergy/AdvReac Type Severity Reaction Status Date / Time No Known Allergies Allergy Verified 05/13/23 00:30 Consultations 05/12/23 20:13 ED Decision to Admit Stat 05/13/23 07:25 Consult General Surgery Routine 05/13/23 08:00 Consult Cardiology Routine Consult Urology Routine Ordered Studies 05/12/23 18:10 CT angio chest PE protocol Stat 05/12/23 21:23 CT abd pelvis wo con Urgent US scrotum/testicle Urgent 05/16/23 10:52 CT Abd and Pelvis [CT abd pelvis wo con] Routine Hospital Course (1) Atypical chest pain: 62-year-old male with past med significant for [place] macroglobulinemia currently under observation, hyperlipidemia, diabetes, presents with not feeling well. Was having chills, feeling cold, chest pain and shortness of breath and also abdominal pain, groin and scrotal pain.. 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 in [place] No acute cardiac symptoms Fat-containing left inguinal hernia Left groin pain Has been going on for a long time No lump on examination but that side looks more floppy compared with the lateral right side CT of the abdomen pelvis did show fat-containing left inguinal hernia Likely the cause of pain The pain persist can follow-up with outpatient surgery Left groin pain is due to fat-containing left inguinal hernia Will need to have a follow-up with surgeon as an outpatient Sigmoid diverticulitis Abdominal pain Tachycardic and in soft blood pressure on presentation Has leukocytosis Had fluids and cefepime and Vanco in the ER Patient states he recently had a diverticulitis Continue antibiotics with Zosyn and Vanco-received in the emergency room N.p.o. for now. IV fluids. IV morphine as needed Has been getting Zosyn for now and vancomycin discontinued Awaiting surgery evaluation We will likely have GI follow-up as an outpatient for colonoscopy Less abdominal pain and has been tolerating full liquid diet Bowel is marked and abdominal pain is improved, no fever and or chills 1 out of 2 blood culture is growing gram-positive cocci in chain further identification is pending but bio fire remains negative Repeat blood cultures are taken-negative Repeat CT of the abdomen and pelvis did show diverticulitis in the sigmoid colon but no evidence of abscess and or perforation and no bowel obstruction Will start oral antibiotic and advised to increase mobility Discharge this afternoon Pain in the scrotum Ultrasound revealed acute orchitis History of orchitis before and was seen by urologist in the past Appreciate urology recommendation and input to continue current antibiotic We will have outpatient urology evaluation following discharge We will continue current antibiotic with intravenous Zosyn Examination of the scrotal area did not reveal any tenderness or swelling Advised to have follow-up appointment with his urologist as an outpatient Denies any more pain in the scrotum-improving gradually Strongly advised to have follow-up with his urologist Diabetes Hold metformin Insulin sliding scale Follow blood sugars and HbA1c levels-7.0 on 05/13/2023 Hyperlipidemia On statin DVT prophylaxis SCDs for now Disposition monitoring med/telemetry Full code Total Time Total Time Spent Total Time Spent (In Minutes): 35 minutes Discharge Plan Discharge Items Patient Disposition: Home - Self-Care Reason For Visit: CHEST PAIN, ABDOMINAL PAIN Discharge Diagnosis: Acute sigmoid diverticulitis, left-sided orchitis with history of left testicular pain, atypical chest pain-no ACS, fat-containing left inguinal hernia Condition on Discharge: Fair Activity: Resume your previous activity Non-emergency contact: Primary Care Provider Call non-emergency contact if: you have any medication questions and your symptoms worsen Follow-up/Referrals: Derrell Cevallos MD [Primary Care Provider] - 05/19/23 11:15 am () Diet: Carb Consistent or DM2 and Low Fiber Addtl Attending Provider Instructions: Please take precautions to avoid fall Please finish the course of antibiotic Keep appointment with your healthcare providers Pending Studies at Discharge: No Stand-Alone Forms: My [facility], Smoking Cessation Medications and DC Order Prescriptions: New amoxicillin-pot clavulanate 875-125 mg Tablet 1 tab PO BIDM Qty: 8 0RF diclofenac sodium [Voltaren Arthritis Pain] 1 % Gel 2 g EXT TID Qty: 50 0RF Continued metformin 500 mg tablet 500 mg PO BID trazodone 50 mg tablet 50 mg PO HS ibuprofen [IBU] 800 mg tablet 800 mg PO Q8H PRN (Reason: Pain) tizanidine 4 mg tablet 4 mg PO Q6H PRN (Reason: Muscle Spasm) valacyclovir [Valtrex] 1 gram tablet See Rx Instructions .ROUTE .COMPLEX PRN (Reason: Cold Sores) Rx Instructions: as directed clotrimazole-betamethasone 1-0.05 % cream 1 applic TOPICAL BID PRN (Reason: other) hydrocortisone 2.5 % cream 1 applic TOPICAL BID PRN (Reason: flare up) ketoconazole 2 % cream See Rx Instructions .ROUTE .COMPLEX Rx Instructions: as directed, daily rosuvastatin 5 mg tablet 5 mg PO DAILY zolpidem [Ambien CR] 12.5 mg tablet,ext release multiphase 12.5 mg PO HS PRN (Reason: Sleep) Discharge Orders: Discharge Order (Routine); Ordered 05/18/23 Ordered By: Baylee Hazel/Other Patient Handouts: Managing Type 2 Diabetes, Diverticulosis and Diverticulitis Admission Data Admit Date/Time: 05/12/23 21:23 Attending Provider: Baylee Boyer Admit Provider: Hamilton Blanco Primary Care Provider: Derrell Cevallos Other Providers: Hamilton Blanco ; Shree Hendrix ; Gabo Mancia ; Samuel Mcknight ; Ledy Leal ; Ismale Aguirre ; Libby Walker ; Marion Coats ; Lauri Kelly ; Suraj Andrade ; Yasmeen Loredo ; Neftaly Wilkes ; Francisco Banda ; Chester Conley ; Stevie Motta Other Interventions: Discharge Summary Assessment (RN) Last Done: 05/18/23 13:41
== END 2023-05-18 16:47 | disposition home or self-care (01) | DRG 872 ==
LOC: ED 16:36 → 2N 21:23 → SUATTDRO 21:23 → 2N 23:15 → 2W 05-15 17:33